=== PATIENT | female | born 1955 | race Caucasian/White ===

== ENCOUNTER 2017-11-27 09:26 | Day surgery (SDC) | payer OTHER ==
[2017-11-26 17:57] VITALS: BMI 23.9
[2017-11-27 10:24] VITALS: TEMP 98.9
[2017-11-27 10:28] LABS: INR 1.08 (0.82-1.09); PROTHROMBIN TIME (PATIENT) 12.2 SEC (9.7-13.0)
[2017-11-27 11:38] LABS: BASO % 0.8 % (0-2.0); EOS % 1.3 % (0-4.5); HEMOGLOBIN 11.2 GM/dL (10.7-15.3); LYMPH % 22.4 % (8-40); MCH 21.4 pg (25.7-33.7); MCHC 30.3 g/dl (32.0-36.0); MEAN CELL VOLUME 70.7 fl (80-96); MEAN PLT VOLUME 9.6 fl (7.5-11.1); MONO % 10.4 % (3.8-10.2); NEUT % 65.1 % (42.8-82.8); PLATELET COUNT 160 K/MM3 (134-434); RBC 5.23 M/mm3 (3.60-5.2); RDW 18.1 % (11.6-15.6); WHITE BLOOD COUNT 5.6 K/mm3 (4.0-10.0)
[2017-11-27 17:04] VITALS: PULSE 80
[2017-11-27 17:33] VITALS: BP 115/67
--- NOTE | 2017-11-28 13:38 | PATH ---
Surgical Pathology Report Patient Name: EFREN PHILIP [facility]. Rec. #: [id number] /Age/Gender: 1955 (Age: 62) / F Account: [id number] Location: RADIOLOGY Taken: 11/27/2017 Received: 11/27/2017 Reported: 11/28/2017 Physicians: Hudson Hernández M.D. Specimen(s) Received LUNG BIOPSY Clinical History 62-year-old female with COPD and right lung cancer status post radiation therapy with excellent response now with new lesion adjacent to old lesion Final Diagnosis RIGHT LUNG BIOPSY: INVASIVE SQUAMOUS CELL CARCINOMA, MODERATELY DIFFERENTIATED. Comment: Interdepartmental case reviewed with consensus on diagnosis. Electronically Signed Chantal Concepcion M.D. Gross Description Received in formalin labeled "right lung biopsy," is a 0.3 x 0.3 x 0.1 cm aggregate of gardner soft tissue fragments. The formalin is filtered and the specimen is entirely submitted in one cassette. /11/27/2017 saudi11/27/2017
== END 2017-11-27 17:48 | disposition home or self-care (01) ==
LOC: JRADIR 09:26
PROVIDERS: ATTEND Radiology Radiation Oncology
PROC: 0BBK3ZX Excision of Right Lung, Percutaneous Approach, Diagnostic (ICD-10-PCS; principal; 2017-11-27)
DX: C34.91 Malignant neoplasm of unspecified part of right bronchus or lung (principal)
CPT/HCPCS: 32405; 36415; 71045-TC-FY; 77012-TC; 85025; 85610; 88305-TC

== ENCOUNTER 2018-12-19 20:00 | Inpatient (IN) | payer OTHER ==
[2018-12-19 20:28] VITALS: BMI 21.4
--- NOTE | 2018-12-19 21:03 | PDOC ---
History of Present Illness - General Chief Complaint: Respiratory Stated Complaint: COUGH Time Seen by Provider: 12/19/18 21:03 History Source: Patient - History of Present Illness Initial Comments: 12/19/18 21:51 PCP: Dr. Jordan Ruggiero. Patient is a 63 year old female presented to the ED from [facility] presented to the ED with the chief complaint of worsening Shortness of breath at rest and dry cough. CXR was done at [facility] shows Right upper lung PNA, so sent here for further evaluation. Patient was admitted at [facility] on December 06, 2018 with Shortness of breath, was found to have respiratory failure and was intubated in the ED at [facility] after failed bipap trial. She was discharged to [facility] for short term rehab with instructions to use Bipap PRN. Patient reports that upon returning to the [place], she was feeling better. But few days ago, her room mate at the [place] left the window opened all night and she caught cold as per the patient. Since then has worsening hacking cough, fever 100 F and shortness of breath. Denies chest pain, palpitation, abdominal pain, nausea or vomiting. Bowel/Bladde habit normal. Sleep/Appetite decreased. As per the chart, ECHO done in 11/24 shows EF 50 %, RV enlargement. Past Medical hx: HTN, HLD, DM, CAD, COPD on home oxygen 2-3 L with Bipap PRN, Right lung CA s/p radiation a year ago, active smoker. Allergies: Nifedipine, Shell fish (rash) Medications: Telmisartan 40 mg, Amlodipine 10 mg, HCTZ 12.5 mg, Aspirin 81 mg, Plavix 75 mg, Basiglar, Metformin 500 mg BID, Advair BID, albuterol, gabapentin 300 mg, Mylanta. Past Surgical hx: None Social hx: lives at home. At [facility] for short term rehab Smoking: Smokes 5-6 cigs/day, hasn't smoked since 3 weeks. 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 - Travel Traveled outside of the country in the last 30 days: No Close contact w/someone who was outside of country & ill: No - Past Medical History Allergies/Adverse Reactions: Allergies Allergy/AdvReac Type Severity Reaction Status Date / Time nifedipine [From Procardia] Allergy Intermediate RED SKIN Verified 11/26/17 17: 37 Home Medications: Ambulatory Orders Albuterol 0.083% Nebulizer Miladis [Ventolin 0.083%] 1 neb NEB Q4H 09/03/17 Albuterol Sulfate Inhaler - [Ventolin Hfa Inhaler -] 1 - 2 inh PO QID 09/03/17 Amlodipine Besylate [Norvasc -] 10 mg PO DAILY 09/03/17 Aspirin 81 mg PO DAILY 09/03/17 Clopidogrel Bisulfate [Plavix] 75 mg PO DAILY 09/03/17 Gabapentin 300 mg PO TID 09/03/17 Hydrochlorothiazide 12.5 mg PO DAILY 09/03/17 Insulin Glargine,Hum.rec.anlog [Lantus] 100 unit SQ ASDIR 09/03/17 Nitroglycerin 0.4 mg SL PRN PRN 09/03/17 Olmesartan Medoxomil [Benicar] 20 mg PO DAILY 09/03/17 Salmeterol/Fluticasone [Advair 100Mcg/50Mcg -] 1 inh IH DAILY 09/03/17 Tiotropium Gilbert [Spiriva] 1 inh IH DAILY 09/03/17 metFORMIN HCL [Metformin HCl] 500 mg PO BID 09/03/17 Methadone [Dolophine -] 60 mg PO DAILY 11/27/17 Anemia: Yes Asthma: Yes Cancer: Yes (bone cancer) Cardiac Disorders: Yes (?STENT) CVA: No COPD: Yes CHF: No Dementia: No Diabetes: Yes (IDDM) GI Disorders: No Disorders: No HTN: Yes Hypercholesterolemia: Yes Liver Disease: No Seizures: No Thyroid Disease: No - Surgical History Abdominal Surgery: No Appendectomy: No Cardiac Surgery: Yes (ANGIOPLASTY ? STENT) Cholecystectomy: No Lung Surgery: Yes (LUNG BIOPSY) Neurologic Surgery: No Orthopedic Surgery: No - Suicide/Smoking/Psychosocial Hx Smoking History: Former smoker Have you smoked in the past 12 months: Yes Number of Cigarettes Smoked Daily: 2 Information on smoking cessation initiated: Yes 'Breaking Loose' booklet given: 09/03/17 Hx Alcohol Use: No Drug/Substance Use Hx: No (1 month ago) Substance Use Type: Heroin Hx Substance Use Treatment: Yes Review of Systems - Review of Systems Able to Perform ROS?: Yes Is the patient limited Swedish proficient: No *Physical Exam - Vital Signs Last Vital Signs Temp Pulse Resp BP Pulse Ox 98.5 F 101 H 22 H 121/69 98 12/19/18 20:05 12/19/18 20:05 12/19/18 20:05 12/19/18 20:05 12/19/18 20:05 - Physical Exam Comments: 12/19/18 22:23 General: Patient is sitting in bed, wheezing, short of breath, awake, alert, oriented x 3, can speak full sentence, in mild respiratory distress. HEENT: EOM intact, pallor +, no icterus. Chest: Tachypenic, B/L lungs coarse breath sounds, wheezing + CVS: Tachycardic, regular rate and rhythm, S1, S2 no murmur Abdomen: Soft, non tender, no organomegaly, BS + Ext: No peripheral edema Neuro: No facial droop, groosly normal. ED Treatment Course - LABORATORY CBC & Chemistry Diagram: 12/19/18 21:50 12/19/18 21:50 Medical Decision Making - Medical Decision Making 12/19/18 22:25 Patient is a 63 year old female from [facility] with significant past medical history of HTN, HLD, DM, CAD, Right lung cancer, recently intubated 12/06/2018 at [facility] for respiratory distress presented with worsening shortness of breath, cough, fever, found to have pneumonia in CXR. Will send for septic work up: CBC ,CMP, Blood cultures. Also UA, urine for tox, trops IV NS 500 mls, Pt has dry mucus membrane and looks dilma Duoneb Solumedrol 125 mg, Zosyn and Vancomycin 1000 mg. CXR. Influenza, RSV sent 12/19/18 22:41 CBC: No leukocytosis, Microcytic anemia H/H 03/0612/19/18 22:42 Hospitalist admits for [facility]a [employer]. 12/19/18 23:20 Accepted by [facility] for admission in Med/Surg *DC/Admit/Observation/Transfer Diagnosis at time of Disposition: Hospital-acquired pneumonia - Referrals Referrals: Jordan Ruggiero MD [Primary Care Provider] - - Patient Instructions - Post Discharge Activity
[2018-12-19] MEDS ORDERED: ALBUTEROL SO4 2.5/IPRATROPIUM 0.5 INH SOL 3 ML VIAL.NEB. NEB ONE ×5 (21:25→23:14)
[2018-12-19] MEDS ORDERED: methylPREDNISolone NA SUCC 125 MG/2 ML VIAL IVPB ONE (21:38)
[2018-12-19] MEDS ORDERED: SODIUM CHLORIDE 0.9% 1000 ML INFUS.BAG IV ONE ×2 (21:38→23:59)
[2018-12-19] MEDS ORDERED: PIPERACILLIN/TAZOB 4.5 GM 4.5 GM in DEXTROSE 5%-WATER 100 ML IVPB ONE (21:40)
[2018-12-19] MEDS ORDERED: VANCOMYCIN 1 GM in D5W (PRE-DOCKED) 1,000 MG/250 ML IVPB ONE (21:40)
[2018-12-19 22:19] LABS: INR 1.13 (0.83-1.09); PROTHROMBIN TIME (PATIENT) 13.3 SEC (9.7-13.0)
[2018-12-19 22:20] LABS: HEMATOCRIT 29.8 % (32.4-45.2); HEMOGLOBIN 8.9 GM/dL (10.7-15.3); MCH 21.2 pg (25.7-33.7); MEAN CELL VOLUME 70.8 fl (80-96); MEAN PLT VOLUME 9.1 fl (7.5-11.1); PLATELET COUNT 173 K/MM3 (134-434); RBC 4.21 M/mm3 (3.60-5.2); RDW 20.8 % (11.6-15.6); URINE APPEARANCE CLEAR; URINE BILIRUBIN NEGATIVE (NEGATIVE); URINE COLOR YELLOW; URINE GLUCOSE (UA) 3+ (NEGATIVE); URINE KETONE NEGATIVE (NEGATIVE); URINE LEUK ESTERASE NEGATIVE (NEGATIVE); URINE NITRITE NEGATIVE (NEGATIVE); URINE PROTEIN NEGATIVE (NEGATIVE); WHITE BLOOD COUNT 5.7 K/mm3 (4.0-10.0)
[2018-12-19] MEDS ORDERED: VANCOMYCIN 1 GRAM (PRE-DOCKED) 1,000 MG/250 ML BAG IVPB ONE (22:22)
[2018-12-19] MEDS ORDERED: PIPERACILLIN/TAZOB 4.5 GM 4.5 GM/100 ML BAG IVPB ONE (22:22)
[2018-12-19] MEDS ORDERED: methylPREDNISolone NA SUCC 125 MG/2 ML VIAL ONE (22:23)
--- NOTE | 2018-12-19 22:27 | PDOC ---
Documentation entered by Alice Jaimes SCRIBE, acting as scribe for Peg Gibson DO. Peg Gibson DO: This documentation has been prepared by the Theodore contreras Mackenzie, SCRIBE, under my direction and personally reviewed by me in its entirety. I confirm that the documentation accurately reflects all work , treatment, procedures, and medical decision making performed by me. Attending Attestation - Resident Resident Name: Glenny Garcia - ED Attending Attestation I have performed the following: I have examined & evaluated the patient, The case was reviewed & discussed with the resident, I agree w/resident's findings & plan, Exceptions are as noted - HPI HPI: The patient is a 63 year old female, with a significant PMH of COPD, CAD, DM, HTN, and HLD who presents to the emergency department from [facility] for evaluation of an abnormal chest X-ray and progressively worsening shortness of breath. Patient states shortness of breath started a few days ago and was accompanied by a dry cough and 100 degree fever. The patient denies chest pain, headache and dizziness. Denies, chills, nausea, vomit, diarrhea and constipation. Denies dysuria, frequency, urgency and hematuria. Allergies: Nifedipine Social history: Reported tobacco use. 12/19/18 22:35 - Physicial Exam PE: GENERAL: Awake, alert, and fully oriented, in no acute distress HEAD: No signs of trauma EYES: PERRLA, EOMI, sclera anicteric, conjunctiva clear ENT: (+)Dry mucosa. Auricles normal inspection, hearing grossly normal, nares patent, oropharynx clear without exudates. NECK: Normal ROM, supple, no lymphadenopathy, JVD, or masses LUNGS:(+) Tachypneic. (+)Diffuse wheezing bilaterally. (+)Right coarse breath sounds diminished at right base. No crackles HEART: Regular rate and rhythm, normal S1 and S2, no murmurs, rubs or gallops ABDOMEN: Soft, nontender, normoactive bowel sounds. No guarding, no rebound. No masses EXTREMITIES: Normal range of motion, no edema. No clubbing or cyanosis. No cords, erythema, or tenderness NEUROLOGICAL: Cranial nerves II through XII grossly intact. Normal speech, normal gait SKIN: Warm, Dry, normal turgor, no rashes or lesions noted. 12/19/18 22:35 - Medical Decision Making 12/19/18 22:23 I, Dr. Peg Gibson, DO, attest that this document has been prepared under my direction and personally reviewed by me in its entirety. I further attest, that it accurately reflects all work, treatment, procedures and medical decision -making performed by me. 12/19/18 22:23 a/p: 63yo female from [facility] for eval of dry cough, sob, and fevers -pt arrives afebrile -pt with recent hospitalization at [facility] 2 weeks ago -hx of lung ca s/p radiation therapy -pt with dry cough -outpt xray shows RUL pna -will send labs, ekg, cxr -will start abx for hcap -will give nebs and steroids for wheezing/sob -will give ivf hydration as pt has dry mm 12/19/18 23:40 no elevated wbc case discussed with BUD who accepts pt to service for hcap abx and blood cultures ordered/drawn 12/19/18 23:44 cxr reviewed will obtain ct chest for further eval for poss pna Heart Score/ECG Review - ECG Intrepretation Comment:: 12/19/18 22:38 sinus at 94, nl axis, nl interval, no acute st/t wave findings
[2018-12-19 22:32] LABS: ALBUMIN 2.8 g/dl (3.4-5.0); BILIRUBIN,TOTAL 0.2 mg/dL (0.2-1); BLOOD UREA NITROGEN 13.5 mg/dL (7-18); CALCIUM 8.8 mg/dL (8.5-10.1); CREATININE 0.4 mg/dL (0.55-1.3); POTASSIUM 5.1 mmol/L (3.5-5.1); TOT PROT 6.3 g/dl (6.4-8.2)
[2018-12-19 23:12] LABS: COCAINE, UR NEGATIVE ng/ml (CUTOFF=300); OPIATES, URI NEGATIVE ng/ml (CUTOFF=300); PHENCYCLIDINE,URINE NEGATIVE ng/ml (CUTOFF=25); URINE AMPHETAMINES NEGATIVE ng/ml (CUTOFF=500); URINE BARBITURATES NEGATIVE ng/ml (CUTOFF=200); URINE BENZODIAZEPINES NEGATIVE ng/ml (CUTOFF=200)
--- NOTE | 2018-12-19 23:22 | HP ---
Admitting History and Physical - Admission Chief Complaint: SOB and cough x2 days History of Present Illness: PCP: Dr. Jordan Ruggiero. Pt is a 63 yo F with PMHx of HTN, HLD, DM, CAD, COPD on home oxygen 2-3 L, Right lung CA s/p radiation a year ago, active smoker, presenting to the ED from [facility] for worsening Shortness of breath at rest and dry cough for 2 days. Pt denies fevers, sputum production and sick contacts. She however shared a room with a roommate who she reports left the window open thus precipitating her symptoms. No chest pain, no hemoptysis. Patient was recently admitted at [facility] 11/2018 for acute hypoxic/capercabnic respiratory failure with intubation x1 day following failed bipap trial. Pt was discharged to [facility] for short term rehab with instructions to use Bipap PRN, following initial improvement of her symptoms. Today, CXR was done at [facility] and reported as Right upper lung PNA, so sent here for further evaluation. Per [facility] records, ECHO done in 11/24 shows EF 50 %, RV enlargement. Medication stopped at [facility]: flulaval, metformin, amlodipine, plavix , micardis, incruse ellipta. Medications changed were: Calcium-Vit D [id number] bid, insulin basaglar changed from 20u to 26u HS, MEDS CONTD: mG oh, ngt-0.4MG SL Q5MINS prn, VENTOLIN 90MCG/INH, gabapentin 300MG TID, omeprazoe 20MG DAILY, asa 81 New meds added were; ipratropium/albuterol-0.5-2.5, Naphazoline-pheniramine- 0.025%-0.3% ophthalmic solution, [id number], nicotine patch, methadone-30mg , Insulin Sliding scale-1, 2, 4, 6, 8 (180-200, 201-250, 251-300 , 301-350, 351-400) In ED: pt received solumed, duonebs, vanc/zosyn CXR- patchy infiltrates WBC-5.7, mcv-70.8, HCO3-33 Allergies: Nifedipine, Shell fish (rash) Past Surgical hx: None Social hx: lives at home with son. At [facility] for short term rehab Smoking: Smokes 5-6 cigs/day, hasn't smoked since 3 weeks. 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 History Source: Patient, Medical Record - Smoking History Smoking history: Former smoker Have you smoked in the past 12 months: Yes Aproximately how many cigarettes per day: 2 - Alcohol/Substance Use Hx Alcohol Use: No Home Medications - Allergies Allergies/Adverse Reactions: Allergies Allergy/AdvReac Type Severity Reaction Status Date / Time nifedipine [From Procardia] Allergy Intermediate RED SKIN Verified 12/19/18 23: 29 - Home Medications Home Medications: Ambulatory Orders Albuterol Sulfate Inhaler - [Ventolin Hfa Inhaler -] 1 - 2 inh PO QID 09/03/17 Aspirin 81 mg PO DAILY 09/03/17 Gabapentin 300 mg PO TID 09/03/17 Nitroglycerin 0.4 mg SL PRN PRN 09/03/17 Acetaminophen [Tylenol Extra Strength] 500 mg PO PRN 12/19/18 Calcium Carbonate/Vitamin D3 [Calcium 500-Vit D3 200 Tablet] 1 each PO DAILY Insulin Glargine,Hum.rec.anlog [Basaglar Kwikpen U-100] 26 unit SQ DAILY Nicotine [Nicotine Patch] 1 each TD DAILY 12/19/18 Omeprazole 20 mg PO DAILY 12/19/18 Guaifenesin/Dextromethorphan [Guaifenesin Dm Syrup] 5 ml PO Q6H PRN 12/20/18 Insulin Lispro See Protocol SQ AC 12/20/18 Ipratropium/Albuterol Sulfate [Iprat-Albut 0.5-3(2.5) mg/3 ml] 3 ml IN Q6H 12/20 Magnesium Hydroxide [Milk of Magnesia -] 15 ml PO DAILY PRN 12/20/18 Methadone [Dolophine -] 30 mg PO DAILY 12/20/18 Naphazoline HCl/Pheniramine [Allergy Eye Drops] 15 ml OP TID 12/20/18 Review of Systems - Review of Systems Constitutional: denies: Chills, Fever HENT: denies: Difficult Swallowing, Nasal Congestion, Throat Pain Neck: denies: Stiffness Cardiovascular: reports: Shortness of Breath. denies: Chest Pain, Edema, Palpitations Respiratory: reports: Cough, SOB Gastrointestinal: denies: Abdominal Pain, Constipation Genitourinary: denies: Burning Neurological: denies: Change in LOC, Change in Speech, Confusion, Dizziness Hematology/Lymphatic: reports: No Symptoms Physical Examination Vital Signs: Vital Signs Temperature 98.5 F 12/19/18 20:05 Pulse Rate 101 H 12/19/18 20:20 Respiratory Rate 22 H 12/19/18 20:05 Blood Pressure 121/69 12/19/18 20:05 O2 Sat by Pulse Oximetry (%) 100 12/19/18 20:20 Constitutional: Yes: No Distress Eyes: Yes: Conjunctiva Clear, EOM Intact, PERRL HENT: Yes: Atraumatic, Other (Nasal cannular) Neck: Yes: Supple Cardiovascular: Yes: Regular Rate and Rhythm, S1, S2 Respiratory: Yes: Poor Air Entry, Rales Gastrointestinal: Yes: Normal Bowel Sounds, Soft Renal/: No: CVA Tenderness - Left, CVA Tenderness - Right Peripheral Pulses WNL: Yes Neurological: Yes: Alert, Oriented, Cran Nerves II-XII Intact. No: Confusion, Facial Droop, Lethargy ...Motor Strength: WNL Psychiatric: Yes: Alert, Oriented Labs: CBC, BMP 12/19/18 21:50 12/19/18 21:50 Assessment/Plan Ambulatory Orders Albuterol Sulfate Inhaler - [Ventolin Hfa Inhaler -] 1 - 2 inh PO QID 09/03/17 Aspirin 81 mg PO DAILY 09/03/17 Gabapentin 300 mg PO TID 09/03/17 Nitroglycerin 0.4 mg SL PRN PRN 09/03/17 Acetaminophen [Tylenol Extra Strength] 500 mg PO PRN 12/19/18 Calcium Carbonate/Vitamin D3 [Calcium 500-Vit D3 200 Tablet] 1 each PO DAILY Insulin Glargine,Hum.rec.anlog [Basaglar Kwikpen U-100] 26 unit SQ DAILY Nicotine [Nicotine Patch] 1 each TD DAILY 12/19/18 Omeprazole 20 mg PO DAILY 12/19/18 Guaifenesin/Dextromethorphan [Guaifenesin Dm Syrup] 5 ml PO Q6H PRN 12/20/18 Insulin Lispro See Protocol SQ AC 12/20/18 Ipratropium/Albuterol Sulfate [Iprat-Albut 0.5-3(2.5) mg/3 ml] 3 ml IN Q6H 12/20 Magnesium Hydroxide [Milk of Magnesia -] 15 ml PO DAILY PRN 12/20/18 Methadone [Dolophine -] 30 mg PO DAILY 12/20/18 Naphazoline HCl/Pheniramine [Allergy Eye Drops] 15 ml OP TID 12/20/18 Current Medications Albuterol Sulfate (Ventolin 0.083% Nebulizer Soln -) 1 amp NEB Q4H PRN PRN Reason: SHORT OF BREATH/WHEEZING Albuterol Sulfate (Ventolin 0.083% Nebulizer Soln -) 1 amp NEB RQID [facility] Albuterol Sulfate (Ventolin Hfa Inhaler -) puff IH QID [facility] Aspirin (Asa -) 81 mg PO DAILY [facility] Calcium Carbonate/Cholecalciferol (Os-Sj 500+D -) 1 tab PO DAILY [facility] Enoxaparin Sodium (Lovenox -) 40 mg SQ DAILY [facility] Gabapentin (Neurontin -) 300 mg PO TID [facility] Piperacillin Sod/Tazobactam (Sod 3.375 gm/ Dextrose) 50 mls @ 100 mls/hr IVPB Q8H-IV [facility]; Protocol Piperacillin Sod/Tazobactam (Sod 3.375 gm/ Dextrose) 50 mls @ 100 mls/hr IVPB Q8H-IV [facility]; Protocol Stop: 12/20/18 18:29 Insulin Aspart (Novolog Vial Sliding Scale -) 1 vial SQ ACHS [facility]; Protocol Insulin Detemir (Levemir Vial) 26 units SQ HS [facility] Methadone HCl (Dolophine -) 30 mg PO DAILY [facility] Stop: 12/21/18 09:59 Methylprednisolone Sodium Succinate (Solu-Medrol -) 60 mg IVPUSH Q6H-IV [facility] Last Admin: 12/20/18 03:34 Dose: 60 mg Naphazoline HCl/Pheniramine Maleate (Visine-A -) 224.8876 drop OU TID [facility] Nicotine (Nicoderm Patch -) 14 mg TD DAILY [facility] Nitroglycerin (Nitrostat -) 0.4 mg SL PRN PRN PRN Reason: FOR CHEST PAIN Non-Formulary Medication (Guaifenesin/Dextromethorphan) 5 ml PO Q6H PRN PRN Reason: COUGH Non-Formulary Medication (Magnesium Hydroxide) 15 ml PO DAILY PRN PRN Reason: INDIGESTION Non-Formulary Medication (Omeprazole) 20 mg PO DAILY [facility] Vancomycin HCl (Vancomycin (Pre-Docked)) 1,000 mg IVPB DAILY@2200 [facility]; Protocol Assessment/Plan: Pt is a 63 yo F with PMHx of HTN, HLD, DM, CAD, COPD on home oxygen 2-3 L, Right lung CA s/p radiation a year ago, active smoker, presenting to the ED from [facility] for worsening Shortness of breath at rest and dry cough for 2 days. SOB: Likely secondary to COPD exacerbation, received 125 solumed, Cont 60mg Q6H , duonebs, ventolin IH, Likely chronic retainer, HCO3 elevated, pending BNP COPD on home oxygen 2-3 L: Pre and post , Bipap at night and when she desats PRN , cannot find settings will put at 14/4 HAP: Pt recently intubated 11/2018 and treated for PNA in [facility]- Cont Vanc/ zosyn/add levaquin for atypicals, ID-Dr Montejo Would be helpful to get the [facility] Chest images to compare with current CXR, if daytime is able to retrieve documents. Prolonged QTC: repeat EKG in am DM-With hyperglycemia, resume long acting 26U HS, one time dose given, ISS Q2h overnight, ACHS in day time Neuropathy: Cont gabapentin HTN:Arb stopped in [facility], cotn to monitor HLD: No statins documented CAD: Unclear hx, appears she got cath without stents in past. Plavix held by [facility], cont ASA Right lung CA s/p radiation a year ago, Hemonc follow up- Dr Fuchs, increases pt risk for obstructive PNA active smoker: Nicotine patch Lovenox sq Protonix Diabetic diet, no standing fluids Visit type - Emergency Visit Emergency Visit: Yes ED Registration Date: 12/19/18 Care time: The patient presented to the Emergency Department on the above date and was hospitalized for further evaluation of their emergent condition. - New Patient This patient is new to me today: Yes Date on this admission: 12/19/18 - Critical Care Critical Care patient: No
[2018-12-19 23:59] LABS: METHADONE, UR POSITIVE ng/ml (CUTOFF=300)
[2018-12-20] MEDS ORDERED: ALBUTEROL SO4 0.083% IH SOL 2.5 MG/3 ML VIAL.NEB. NEB PRN (02:45)
--- NOTE | 2018-12-20 03:11 | PN ---
Teaching Attending Note Name of Resident: Angela Abernathy ATTENDING PHYSICIAN STATEMENT I saw and evaluated the patient. I reviewed the resident's note and discussed the case with the resident. I agree with the resident's findings and plan as documented. SUBJECTIVE: Seen and examined; please refer to resident note for further historical information. Patient is a 63 y/o female presenting to the medicine service for SOB from her SNF (was at [facility] for short term rehab, patient of Dr. Antoine Ruggiero). She was recently discharged to [facility] from [facility] on 12/11/18. She has a history of lung cancer, COPD on 2L O2 ATC, HTN, DM, CAD. She is documented in DC summary as being a poor historian and this is reflected. She had worsening SOB x1 day today and was found on CXR at her facility to have patchy RUL infiltrate. She was recently intubated at OSH. She was given nebs, steroids in the ER which did improve her sx and she is now saturating well on 3L NC without any respiratory distress. CT chest was obtained in the ER which shows multiple b/l lung nodules, largest 7mm in RUL and 8mm LLL. This is accompanied by interstitial thickening and centrilobular nodules in the RLL which possibly represents atypical infection. No fever or leukocytosis noted. Does have a cough and SOB on exertion. Dr. Fuchs is her oncologist per documentation. The DC summary states that she is medically stable with PRN daytime and qHS nocturnal bipap; it is unknown if she was tried on BiPap today prior to presenting. 10 sys ROS done and negative aside from HPI PMH, PSH, FH, SH reviewed Home Medications UPDATING FROM PR RECORDS/DC SUMMARY OBJECTIVE: VS, labs, imaging reviewed NAD, AAO, resting in bed on 3L NC NC AT EOMI PERRLA NT ND +BS Lungs with scattered wheezes, w/ sym exp CN2-12 wnl, no fnd Normal mood, appropriate behavior. EKG reviewed CT chest reviewed; prelim report discussed in HPI and final report pending Outside CXR report reviewed and discussed above Echo from OSH documents 50% LVEF with RV enlargement ASSESSMENT AND PLAN: Patient presents with SOB and hypoxia (improved) 9 days after being DCd from ICU stay requiring intubation; likely COPD exacerbation with potential PNA vs. residual changes from prior infection. 1) SOB/Hypoxia -Improved; likely COPD with ?PNA (was just admitted and intubated; want to compare old images to ensure this wasn't in area of prior distibution of changes in the absence of WBC, fever) -Covering for COPD exacerbation and HAP; discussed seperately -PRN O2 (try to wean back to home requirement of 2L), incentive spirometry. Consider pulmonary consultation. -qHS BiPap with PRN daytime support as recommended in prior DCS. 2) COPD Exacerbation -Positive as SOB with exert with change in cough -60 q6h steroids, ATC nebs with PRN available, IV levaquin (QTC <460); consider pulmonary consultation -NRT while inpatient; she smoked 1/4 PPD up until her admission at OSH -PRN Bipap recommended in prior DCS 3) HAP -Based on imaging will cover empirically and add additional atypical coverage with levaquin -Sputum/blood cx, urine antigen L and P, incentive spirometry. Monitor for fever or white count. -ID consultation given abx choices; appreciate expert opinion 4) Hx Lung CA -Consult her oncologist to get the full treatment history as she is not aware and the documents sent over do not detail this; she has had radiation so consider radiation pneumonitis, etc. but I need to have a much better idea on what exact treatments she got and the timeframe. 5) Hx CAD -Documented on her last admission at [facility] she had her plavix stopped along with other medication changes. Will verify list with NH and continue appropriate home medications. 6) Chronic Pain -Continue methadone 7) Microcytic Anemia -Trend CBC; check iron studies. Full Code
[2018-12-20] MEDS ORDERED: INSULIN (NOVOLOG) ASPART 100 UNITS/ML 10ML VIAL SQ ONE (03:30)
[2018-12-20] MEDS: methylPREDNISolone NA SUCC 40 MG/1 ML VIAL IVPUSH SCH ×3 (03:34→22:03)
[2018-12-20] MEDS ORDERED: INSULIN (LEVEMIR) 100 UNITS/ML UNITS SQ ONE (03:48)
[2018-12-20] MEDS ORDERED: guaiFENesin/D-METHORPHAN HB 10 ML UNIT-DOSE CUPS PO PRN (03:57)
[2018-12-20] MEDS ORDERED: MAGNESIUM HYDROX 2400MG/30ML ORAL SUSPENSION 30 ML CUP PO PRN (03:57)
[2018-12-20] MEDS ORDERED: NITROGLYCERIN SUBLINGUAL 1/150 0.4 MG TAB SL PRN (03:57)
[2018-12-20] MEDS: GABAPENTIN 300 MG CAPSULE (FP) PO SCH ×3 (05:44→22:04)
[2018-12-20] MEDS: NAPHAZOLINE/PHENIRAMINE OPHTHALMIC 15 ML BOTTLE OU SCH ×3 (06:12→22:08)
[2018-12-20] MEDS: INSULIN SLIDING SCALE (NOVOLOG) 1 VIAL SQ SCH ×4 (06:13→22:05)
[2018-12-20 07:48] LABS: INR 1.07 (0.83-1.09); PROTHROMBIN TIME (PATIENT) 12.6 SEC (9.7-13.0)
[2018-12-20 07:50] LABS: ACTIVATED PTT 27.9 SECONDS (25.2-36.5)
[2018-12-20] MEDS: ALBUTEROL SO4 0.083% IH SOL 2.5 MG/3 ML VIAL.NEB. NEB SCH ×4 (07:56→20:45)
[2018-12-20 08:06] LABS: ALBUMIN 2.6 g/dl (3.4-5.0); BILIRUBIN,TOTAL 0.2 mg/dL (0.2-1); BLOOD UREA NITROGEN 10.4 mg/dL (7-18); CREATININE 0.4 mg/dL (0.55-1.3); MAGNESIUM 1.8 mg/dL (1.8-2.4); PHOSPHOROUS 2.3 mg/dL (2.5-4.9); POTASSIUM 4.1 mmol/L (3.5-5.1); TOT PROT 6.1 g/dl (6.4-8.2)
[2018-12-20 08:26] LABS: BASO % 0.2 % (0-2.0); HEMATOCRIT 29.4 % (32.4-45.2); HEMOGLOBIN 8.9 GM/dL (10.7-15.3); LYMPH % 7.1 % (8-40); MCHC 30.3 g/dl (32.0-36.0); MEAN CELL VOLUME 69.2 fl (80-96); MEAN PLT VOLUME 8.9 fl (7.5-11.1); MONO % 1.6 % (3.8-10.2); NEUT % 91.1 % (42.8-82.8); PLATELET COUNT 177 K/MM3 (134-434); RBC 4.25 M/mm3 (3.60-5.2); RDW 20.7 % (11.6-15.6)
[2018-12-20] MEDS ORDERED: VANCOMYCIN 1 GM in D5W (PRE-DOCKED) 1,000 MG/250 ML IVPB SCH ×2 (10:00→22:00)
[2018-12-20] MEDS ORDERED: ALBUTEROL SO4 8 GM HFA INHALER IH SCH (10:00)
[2018-12-20] MEDS ORDERED: PIPERACILLIN/TAZOB 3.375 GM 3.375 GM in DEXTROSE 5%-WATER - 50 ML IVPB SCH (10:00)
[2018-12-20] MEDS ORDERED: METHADONE HCL 10 MG TABLET PO ONE (10:00)
--- NOTE | 2018-12-20 10:24 | CONSULT ---
Consultation: REQUESTING PROVIDER: Dr Abernathy CONSULT REQUEST: We have been asked to medically evaluate this patient for lung cancer. HISTORY OF PRESENT ILLNESS: The patient is a 63 yo F with PMHx of HTN, HLD, DM, CAD, COPD on home oxygen 2- 3 L, right lung Ca s/p stereotactic radiotherapy x 2, stable PET scan, active smoker, presenting to the ED from [facility] for SOB, hypoxia, found to have possible infiltrate. The patient was admitted recently to [facility] for acute respiratory failure and intubated. She was discharged to [facility] and states that her roommate opened a window few days ago and she started having fever and chills. She is admitted for COPD exacerbation/PNA. Hematology/Oncology was consulted for lung cancer. Today she is feeling better, denies SOB, chest pain, fever, chills. She reports 3-4 lbs weight loss after recent hospitalization. [place] patient is complaining of chronic cough and tingling in her hands and feet. She denies dysuria, nausea, vomiting, diarrhea, night sweats. She denies headaches, weakness, dizziness, chest pain, SOB. Of note the patient is not known to Dr Gilmore. 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 Smoking: Smokes 1 cig/day since the age 18, smoked more than that before. Alcohol: Denies. 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 FH: mother: during surgery, father unknown cancer, brother cancer, sister cancer, daughter CVA x 2. REVIEW OF SYSTEMS: CONSTITUTIONAL: Absent: fever, chills, diaphoresis, generalized weakness, loss of appetite, weight change HEENT: Absent: rhinorrhea, nasal congestion, difficulty swallowing, mouth swelling, visual changes CARDIOVASCULAR: Absent: chest pain, syncope, palpitations, irregular heart rate, lightheadedness , peripheral edema RESPIRATORY: cough, shortness of breath Absent: orthopnea, wheezing GASTROINTESTINAL: Absent: abdominal pain, abdominal distension, nausea, vomiting, diarrhea, constipation, GENITOURINARY: Absent: dysuria, frequency, urgency, hesitancy, hematuria, flank pain MUSCULOSKELETAL: Absent: myalgia, arthralgia, joint swelling, back pain, SKIN: Absent: rash, itching, pallor HEMATOLOGIC/IMMUNOLOGIC: Absent: easy bleeding, easy bruising, lymphadenopathy, ENDOCRINE: Absent: unexplained weight gain, unexplained weight loss, NEUROLOGIC: unsteady gait Absent: headache, focal weakness or paresthesias, dizziness PSYCHIATRIC: Absent: anxiety, depression PHYSICAL EXAMINATION Vital Signs - 24 hr 12/19/18 12/19/18 12/20/18 20:05 20:20 01:05 Temperature 98.5 F 98.2 F Pulse Rate 101 H 101 H 99 H Respiratory 22 H 20 Rate Blood Pressure 121/69 115/66 O2 Sat by Pulse 98 100 Oximetry (%) 12/20/18 12/20/18 12/20/18 01:10 01:19 06:30 Temperature 98.2 F Pulse Rate 99 H 92 H Respiratory 20 Rate Blood Pressure 115/66 O2 Sat by Pulse 100 91 L Oximetry (%) 12/20/18 07:04 Temperature 97.7 F Pulse Rate 104 H Respiratory 20 Rate Blood Pressure 140/84 O2 Sat by Pulse Oximetry (%) GENERAL: Awake, alert, and fully oriented, in no acute distress. HEAD: Normal with no signs of trauma. EYES: Pupils equal, round and reactive to light, extraocular movements intact, sclera anicteric, conjunctiva clear. EARS, NOSE, THROAT: Ears normal, nares patent, oropharynx clear without exudates. Moist mucous membranes, missing teeth. NECK: Normal range of motion, supple without lymphadenopathy. LUNGS: Scattered rhales, crackles at bases, diminished breat sounds on right side. No wheezes, and no crackles. No accessory muscle use. HEART: Regular rate and rhythm, normal S1 and S2 without murmur, rub or gallop. ABDOMEN: Soft, nontender, not distended, normoactive bowel sounds, no guarding, no rebound, no masses. MUSCULOSKELETAL: Normal range of motion at all joints. No bony deformities or tenderness. UPPER EXTREMITIES: No peripheral edema. LOWER EXTREMITIES: 2+ pulses, warm. No peripheral edema. NEUROLOGICAL: No facial asymmetry, motor 5/5, sensation intact. Normal speech. Normal gait. PSYCHIATRIC: Cooperative. Good eye contact. Appropriate mood and affect. SKIN: Warm, dry, normal turgor, no rashes. BREAST: symmetric, no skin rash, no discharge, no masses. Laboratory Results - last 24 hr 12/19/18 12/19/18 12/19/18 21:50 21:50 21:50 WBC 5.7 RBC 4.21 Hgb 8.9 L Hct 29.8 L D MCV 70.8 L MCH 21.2 L MCHC 30.0 L RDW 20.8 H Plt Count 173 MPV 9.1 Absolute Neuts (auto) Neutrophils % Lymphocytes % Monocytes % Eosinophils % Basophils % Nucleated RBC % PT with INR 13.30 H INR 1.13 H PTT (Actin FS) Sodium 137 Potassium 5.1 Chloride 100 Carbon Dioxide 33 H Anion Gap 3 L BUN 13.5 Creatinine 0.4 L Est GFR (CKD-EPI)AfAm 128.47 Est GFR (CKD-EPI)NonAf 110.85 POC Glucometer Random Glucose 302 H* Calcium 8.8 Phosphorus Magnesium Ferritin Total Bilirubin 0.2 AST 18 ALT 19 Alkaline Phosphatase 83 Troponin I B-Natriuretic Peptide Total Protein 6.3 L Albumin 2.8 L Urine Color Urine Appearance Urine pH Ur Specific [place] Urine Protein Urine Glucose (UA) Urine Ketones Urine Blood Urine Nitrite Urine Bilirubin Urine Urobilinogen Ur Leukocyte Esterase Opiates Screen Methadone Screen Barbiturate Screen Phencyclidine Screen Ur Amphetamines Screen MDMA (Ecstasy) Screen Benzodiazepines Screen Cocaine Screen U Marijuana (THC) Screen Influenza A (Rapid) Influenza B (Rapid) RSV Rapid 12/19/18 12/19/18 12/19/18 21:50 21:50 21:50 WBC RBC Hgb Hct MCV MCH MCHC RDW Plt Count MPV Absolute Neuts (auto) Neutrophils % Lymphocytes % Monocytes % Eosinophils % Basophils % Nucleated RBC % PT with INR INR PTT (Actin FS) Sodium Potassium Chloride Carbon Dioxide Anion Gap BUN Creatinine Est GFR (CKD-EPI)AfAm Est GFR (CKD-EPI)NonAf POC Glucometer Random Glucose Calcium Phosphorus Magnesium Ferritin Total Bilirubin AST ALT Alkaline Phosphatase Troponin I < 0.02 B-Natriuretic Peptide Total Protein Albumin Urine Color Yellow Urine Appearance Clear Urine pH 6.0 Ur Specific [place] 1.040 H Urine Protein Negative Urine Glucose (UA) 3+ H Urine Ketones Negative Urine Blood Negative Urine Nitrite Negative Urine Bilirubin Negative Urine Urobilinogen 1.0 Ur Leukocyte Esterase Negative Opiates Screen Methadone Screen Barbiturate Screen Phencyclidine Screen Ur Amphetamines Screen MDMA (Ecstasy) Screen Benzodiazepines Screen Cocaine Screen U Marijuana (THC) Screen Influenza A (Rapid) Negative Influenza B (Rapid) Negative RSV Rapid 12/19/18 12/19/18 12/20/18 21:50 21:50 03:19 WBC RBC Hgb Hct MCV MCH MCHC RDW Plt Count MPV Absolute Neuts (auto) Neutrophils % Lymphocytes % Monocytes % Eosinophils % Basophils % Nucleated RBC % PT with INR INR PTT (Actin FS) Sodium Potassium Chloride Carbon Dioxide Anion Gap BUN Creatinine Est GFR (CKD-EPI)AfAm Est GFR (CKD-EPI)NonAf POC Glucometer 348 Random Glucose Calcium Phosphorus Magnesium Ferritin Total Bilirubin AST ALT Alkaline Phosphatase Troponin I B-Natriuretic Peptide Total Protein Albumin Urine Color Urine Appearance Urine pH Ur Specific [place] Urine Protein Urine Glucose (UA) Urine Ketones Urine Blood Urine Nitrite Urine Bilirubin Urine Urobilinogen Ur Leukocyte Esterase Opiates Screen Negative Methadone Screen Positive A* Barbiturate Screen Negative Phencyclidine Screen Negative Ur Amphetamines Screen Negative MDMA (Ecstasy) Screen Negative Benzodiazepines Screen Negative Cocaine Screen Negative U Marijuana (THC) Screen Negative Influenza A (Rapid) Influenza B (Rapid) RSV Rapid Negative 12/20/18 12/20/18 12/20/18 05:42 06:45 06:45 WBC 4.0 RBC 4.25 Hgb 8.9 L Hct 29.4 L MCV 69.2 L MCH 21.0 L MCHC 30.3 L RDW 20.7 H Plt Count 177 MPV 8.9 Absolute Neuts (auto) 3.6 Neutrophils % 91.1 H D Lymphocytes % 7.1 L D Monocytes % 1.6 L D Eosinophils % 0.0 D Basophils % 0.2 Nucleated RBC % 0 PT with INR INR PTT (Actin FS) Sodium Potassium Chloride Carbon Dioxide Anion Gap BUN Creatinine Est GFR (CKD-EPI)AfAm Est GFR (CKD-EPI)NonAf POC Glucometer 301 Random Glucose Calcium Phosphorus Magnesium Ferritin Total Bilirubin AST ALT Alkaline Phosphatase Troponin I B-Natriuretic Peptide 179.4 H Total Protein Albumin Urine Color Urine Appearance Urine pH Ur Specific [place] Urine Protein Urine Glucose (UA) Urine Ketones Urine Blood Urine Nitrite Urine Bilirubin Urine Urobilinogen Ur Leukocyte Esterase Opiates Screen Methadone Screen Barbiturate Screen Phencyclidine Screen Ur Amphetamines Screen MDMA (Ecstasy) Screen Benzodiazepines Screen Cocaine Screen U Marijuana (THC) Screen Influenza A (Rapid) Influenza B (Rapid) RSV Rapid 12/20/18 12/20/18 12/20/18 06:45 06:45 06:45 WBC RBC Hgb Hct MCV MCH MCHC RDW Plt Count MPV Absolute Neuts (auto) Neutrophils % Lymphocytes % Monocytes % Eosinophils % Basophils % Nucleated RBC % PT with INR 12.60 INR 1.07 PTT (Actin FS) 27.9 Sodium 141 Potassium 4.1 Chloride 104 Carbon Dioxide 33 H Anion Gap 4 L BUN 10.4 Creatinine 0.4 L Est GFR (CKD-EPI)AfAm 128.47 Est GFR (CKD-EPI)NonAf 110.85 POC Glucometer Random Glucose 290 H Calcium 9.0 Phosphorus 2.3 L Magnesium 1.8 Ferritin 45.5 Total Bilirubin 0.2 AST 10 L ALT 18 Alkaline Phosphatase 82 Troponin I B-Natriuretic Peptide Cancelled Total Protein 6.1 L Albumin 2.6 L Urine Color Urine Appearance Urine pH Ur Specific [place] Urine Protein Urine Glucose (UA) Urine Ketones Urine Blood Urine Nitrite Urine Bilirubin Urine Urobilinogen Ur Leukocyte Esterase Opiates Screen Methadone Screen Barbiturate Screen Phencyclidine Screen Ur Amphetamines Screen MDMA (Ecstasy) Screen Benzodiazepines Screen Cocaine Screen U Marijuana (THC) Screen Influenza A (Rapid) Influenza B (Rapid) RSV Rapid Active Medications Generic Name Dose Route Start Last Admin Trade Name Freq PRN Reason Stop Dose Admin Albuterol Sulfate 1 amp 12/20/18 02:45 Ventolin 0.083% Nebulizer Soln - NEB Q4H PRN SHORT OF BREATH/WHEEZING Albuterol Sulfate 1 amp 12/20/18 08:00 12/20/18 07:56 Ventolin 0.083% Nebulizer Soln - NEB 1 amp RQID [facility] Administration Albuterol Sulfate puff 12/20/18 10:00 Ventolin Hfa Inhaler - IH QID [facility] Aspirin 81 mg 12/20/18 10:00 Asa - PO DAILY [facility] Calcium Carbonate/Cholecalciferol 1 tab 12/20/18 10:00 Os-Sj 500+D - PO DAILY [facility] Enoxaparin Sodium 40 mg 12/20/18 10:00 Lovenox - SQ DAILY [facility] Gabapentin 300 mg 12/20/18 06:00 12/20/18 05:44 Neurontin - PO 300 mg TID [facility] Administration Guaifenesin 5 ml 12/20/18 03:57 Robitussin Dm - PO Q6H PRN COUGH Piperacillin Sod/Tazobactam 50 mls @ 100 mls/hr 12/20/18 10:00 Sod 3.375 gm/ Dextrose IVPB Q8H-IV [facility] Protocol Piperacillin Sod/Tazobactam 50 mls @ 100 mls/hr 12/20/18 10:00 Sod 3.375 gm/ Dextrose IVPB 12/20/18 18:29 Q8H-IV [facility] Protocol Insulin Aspart 1 vial 12/20/18 07:00 12/20/18 06:13 Novolog Vial Sliding Scale - SQ 8 units ACHS [facility] Administration Protocol Insulin Detemir 26 units 12/20/18 22:00 Levemir Vial SQ HS [facility] Magnesium Hydroxide 15 ml 12/20/18 03:57 Milk Of Magnesia - PO DAILY PRN INDIGESTION Methylprednisolone Sodium Succinate 60 mg 12/20/18 03:00 12/20/18 08:22 Solu-Medrol - IVPUSH 60 mg Q6H-IV [facility] Administration Naphazoline HCl/Pheniramine Maleate 1 drop 12/20/18 06:00 12/20/18 06:12 Visine-A - OU Not Given TID [facility] Nicotine 14 mg 12/20/18 10:00 Nicoderm Patch - TD DAILY [facility] Nitroglycerin 0.4 mg 12/20/18 03:57 Nitrostat - SL PRN PRN FOR CHEST PAIN Pantoprazole Sodium 20 mg 12/20/18 10:00 Protonix - PO DAILY [facility] Vancomycin HCl 1,000 mg 12/20/18 22:00 Vancomycin (Pre-Docked) IVPB DAILY@2200 [facility] Protocol ASSESSMENT/PLAN: The patient is a 63 yo F with PMHx of HTN, HLD, DM, CAD, COPD on home oxygen 2- 3 L, right lung Ca s/p stereotactic radiotherapy x 2, stable PET scan, active smoker, presenting to the ED from [facility] for SOB, hypoxia, found to have possible infiltrate. Admitted for COPD/PNA. Lung cancer COPD/PNA CAD COPD HTN DMII neuropathy Plan: The patient has stable last PET scan, discussed with Dr Jay, her radiation oncologist that has been following the patient since diagnosis. Will f/u recommendations. We recommend to obtain imaging (CT abdomen/pelvis while still in the hospital and PET scan later after resolution of infection) in order to stage the patient. Dispo: We will continue to follow the patient. Thank you for this consultative opportunity. Problem List - Problems (1) COPD (chronic obstructive pulmonary disease) Code(s): J44.9 - CHRONIC OBSTRUCTIVE PULMONARY DISEASE, UNSPECIFIED (2) Lung cancer Code(s): C34.90 - MALIGNANT NEOPLASM OF UNSP PART OF UNSP BRONCHUS OR LUNG (3) Diabetes Code(s): E11.9 - TYPE 2 DIABETES MELLITUS WITHOUT COMPLICATIONS (4) Hypertension Code(s): I10 - ESSENTIAL (PRIMARY) HYPERTENSION (5) Requires oxygen therapy Code(s): Z99.81 - DEPENDENCE ON SUPPLEMENTAL OXYGEN Visit type - Emergency Visit Emergency Visit: Yes ED Registration Date: 12/19/18 Care time: The patient presented to the Emergency Department on the above date and was hospitalized for further evaluation of their emergent condition. - New Patient This patient is new to me today: Yes Date on this admission: 12/20/18 - Critical Care Critical Care patient: No
[2018-12-20] MEDS ORDERED: DEXTROSE 5%-WATER - 50 ML IVPB ONE ×3 (10:28→21:51)
[2018-12-20] MEDS ORDERED: PIPERACILLIN/TAZOBACTAM 3.375 GM VIAL IVPB ONE ×3 (10:28→21:50)
[2018-12-20] MEDS: NICOTINE 14 MG/24 HOURS TOPICAL PATCH TD SCH (10:42)
[2018-12-20] MEDS: ASPIRIN 81 MG CHEWABLE TABLETS PO SCH (10:42)
[2018-12-20] MEDS: PANTOPRAZOLE 20 MG TABLET (FP) PO SCH (10:42)
[2018-12-20] MEDS: CALCIUM 500MG/VIT-D 200 UNITS COMBO TABLET (FP) PO SCH (10:42)
[2018-12-20] MEDS: ENOXAPARIN NA (PORCINE) 40 MG/0.4 ML DISP.SYRIN SQ SCH (10:42)
--- NOTE | 2018-12-20 11:13 | PN ---
Progress Note (short form) - Note Progress Note: ID CONSULT DICTATED R/O HCAP EXACERBATION COPD LUNG CA OBTAIN C/S EMPIRIC ZOSYN
[2018-12-20 11:20] LABS: ANISOCYTOSIS 2+; MACROCYTOSIS 0; OVALOCYTE 2+; PLATELET ESTIMATE NORMAL
--- NOTE | 2018-12-20 11:42 | EKG ---
Test Reason : Blood Pressure : / mmHG Vent. Rate : 094 BPM Atrial Rate : 094 BPM P-R Int : 134 ms QRS Dur : 084 ms QT Int : 366 ms P-R-T Axes : 071 052 069 degrees QTc Int : 457 ms NORMAL SINUS RHYTHM NORMAL ECG NO PREVIOUS ECGS AVAILABLE Confirmed by RAMAN DENG MD ([id number]) on 12/20/2018 11:41:48 AM Referred By: Confirmed By:RAMAN DENG MD
--- NOTE | 2018-12-20 12:00 | PN ---
Teaching Attending Note Name of Resident: Mirian Ku ATTENDING PHYSICIAN STATEMENT I saw and evaluated the patient. I reviewed the resident's note and discussed the case with the resident. I agree with the resident's findings and plan as documented. SUBJECTIVE: Patient seen and examined 63 year old female with COPD, smoker, with history of lung ca - s/p stereotactic radiosurgery x2 for right lung overlap areas. Entered with exacerbation of COPD and has improvement in hospital on antibiotic therapy and steroids. Last Vital Signs Temp Pulse Resp BP Pulse Ox 97.7 F 104 H 20 140/84 91 L 12/20/18 07:04 12/20/18 07:04 12/20/18 07:04 12/20/18 07:04 12/20/18 06:30 HEENT: BARBER, EOM Intact Oropharynx: No thrush, No mucositis, edentulous Neck: Supple Nodes: Without adenopathy Breasts: Without masses Cor: RSR, No murmurs, No gallops Lungs-bronchial breath sounds and scattered rhonchi Abd: Soft, Normal bowel sounds, No organomegaly Ext:No significant edema Skin: No rashes, Integument intact CBC, BMP 12/20/18 06:45 12/20/18 06:45 Current Medications Generic Name Dose Route Start Last Admin Trade Name Freq PRN Reason Stop Dose Admin Albuterol Sulfate 1 amp 12/20/18 02:45 Ventolin 0.083% Nebulizer Soln - NEB Q4H PRN SHORT OF BREATH/WHEEZING Albuterol Sulfate 1 amp 12/20/18 08:00 12/20/18 07:56 Ventolin 0.083% Nebulizer Soln - NEB 1 amp RQID [facility] Administration Aspirin 81 mg 12/20/18 10:00 12/20/18 10:42 Asa - PO 81 mg DAILY [facility] Administration Budesonide/Formoterol Fumarate 2 puff 12/20/18 22:00 Symbicort 160/4.5mcg - IH BID [facility] Calcium Carbonate/Cholecalciferol 1 tab 12/20/18 10:00 12/20/18 10:42 Os-Sj 500+D - PO 1 tab DAILY [facility] Administration Enoxaparin Sodium 40 mg 12/20/18 10:00 12/20/18 10:42 Lovenox - SQ 40 mg DAILY [facility] Administration Gabapentin 300 mg 12/20/18 06:00 12/20/18 05:44 Neurontin - PO 300 mg TID [facility] Administration Guaifenesin 5 ml 12/20/18 03:57 Robitussin Dm - PO Q6H PRN COUGH Piperacillin Sod/Tazobactam 50 mls @ 100 mls/hr 12/20/18 18:00 Sod 3.375 gm/ Dextrose IVPB Q8H-IV [facility] Protocol Insulin Aspart 1 vial 12/20/18 07:00 12/20/18 06:13 Novolog Vial Sliding Scale - SQ 8 units ACHS [facility] Administration Protocol Insulin Detemir 26 units 12/20/18 22:00 Levemir Vial SQ HS [facility] Magnesium Hydroxide 15 ml 12/20/18 03:57 Milk Of Magnesia - PO DAILY PRN INDIGESTION Methylprednisolone Sodium Succinate 60 mg 12/20/18 22:00 Solu-Medrol - IVPUSH BID [facility] Naphazoline HCl/Pheniramine Maleate 1 drop 12/20/18 06:00 12/20/18 06:12 Visine-A - OU Not Given TID [facility] Nicotine 14 mg 12/20/18 10:00 12/20/18 10:42 Nicoderm Patch - TD 14 mg DAILY [facility] Administration Nitroglycerin 0.4 mg 12/20/18 03:57 Nitrostat - SL PRN PRN FOR CHEST PAIN Pantoprazole Sodium 20 mg 12/20/18 10:00 12/20/18 10:42 Protonix - PO 20 mg DAILY [facility] Administration Impression: COPD exacerbation /?pneumonia Lung ca - s/p SRS x 2 Infiltrates vs lung masses DM (II) HBP Suggest bone scan, Abdominal CT scan. Will need outpatient PET to complete staging to decide on further therapy. OBJECTIVE: ASSESSMENT AND PLAN:
--- NOTE | 2018-12-20 13:59 | PN ---
Progress Note (short form) - Note Progress Note: Radiation Oncology Pt seen and examined, chart/films reviewed, last office note and PET-CT report placed on chart, full consult dictated. A 63 yo woman w oxygen-dep COPD and hx of Squamous Cell CA of RLL x 2 s/p SBRT ( 05/2015 and 01/2018) with complete metabolic PET response after treatments. She has had localized disease and recurrence thus far and last PET-CT in Jun 2018 failed to demonstrate metastatic disease. She has a history of bilateral pulmonary nodules usually associated with episodes of her COPD exacerbations which resolve on subsequent CTs. At this time, would continue management of her COPD and empiric PNA tx, consider repeat CT chest in 3-4 weeks after resolution of acute illness. She was scheduled to follow up with me this month and may do so when discharged.
--- NOTE | 2018-12-20 16:28 | CONS ---
DATE OF CONSULTATION: DATE OF DICTATION: 12/20/2018 HISTORY OF PRESENT ILLNESS: The patient is a 63-year-old female who is evaluated for pneumonia. She was recently hospitalized at [facility], [place], with pneumonia. She had developed respiratory failure and required intubation. The patient states that she was treated and successfully extubated and transferred to a halfway facility for rehabilitation. While at the rehabilitation facility she developed worsening short of breath at rest and worsening cough. [facility] apparently showed a right upper lobe pneumonia. The patient states that she became ill at the halfway facility after her roommate had left the window open exposing her to a draft. She developed worsening cough which was nonproductive. She denies any chest pain or hemoptysis, no complaints of high grade fever or shaking chills. Patient has a history of lung cancer, however additional details are not available at this time. She denies any recent chemotherapy. She is a longtime smoker . She has had recent hospitalizations, no recent travel. She is originally from [place], has been living in [place] for 30 years. She also has a history of intranasal heroin in the past and methadone. PAST MEDICAL HISTORY: Positive for lung cancer, hypertension, hyperlipidemia, diabetes mellitus, coronary artery disease, COPD, allergies. ALLERGIES: NIFEDIPINE. MEDICATION: Include albuterol, aspirin, Lovenox, Neurontin, NovoLog, methadone, methylprednisolone, Protonix. SOCIAL HISTORY: As per HPI. LABORATORY DATA: White count 4.0, hematocrit 29.4, platelet count 177, creatinine 0.4, urinalysis negative, flu swab negative. Cultures are pending. CAT scan of the chest shows moderate COPD with emphysematous changes involving both upper lobes, patchy air space opacities suggestive of infiltrates and 3-cm mass-like density in the right lower lobe suggestive of focal consolidation versus mass. PHYSICAL EXAMINATION: General: On physical examination, she is awake and alert, in no acute distress. She is slightly short of breath at rest. Vital signs: Temperature 97.7, blood pressure 140/84, pulse 104 regular, respirations 22 per minute. HEENT: Sclerae anicteric. Cardiovascular: Heart sounds S1, S2. Lungs: Diminished breath sounds throughout. Abdomen: Soft, nontender. Extremities: Negative for edema. IMPRESSION: 1. Rule out healthcare-acquired pneumonia. 2. Exacerbation chronic obstructive pulmonary disease. 3. History of lung cancer. Await culture results. Empiric antibiotic coverage with Zosyn for possible healthcare-acquired pathogens versus postobstructive process. Further recommendations pending cultures. Inhaled bronchodilators and corticosteroids. Thank you for the kind referral . RAMAN OLIVAS M.D. [id number]
--- NOTE | 2018-12-20 17:08 | CONS ---
DATE OF CONSULTATION: 12/20/2018 REFERRING PHYSICIAN: Kulwinder Navarro M.D. REASON FOR CONSULTATION: Followup for lung cancer status post stereotactic radiation therapy. 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 She was not a surgical candidate. She completed stereotactic body radiotherapy with us in May 2015 with a complete metabolic response on PET CT scan. She continued to smoke and had multiple hospital admissions for recurrent respiratory illness. Last year the PET CT demonstrated increased hypermetabolic activity in the right lower lobe adjacent to the prior treatment field. A CT-guided percutaneous biopsy confirmed recurrent squamous cell carcinoma. The tumor was located adjacent to the previously treated tumor/scar. She refused chemotherapy evaluation. She had no suspicious metastatic disease and elected to receive repeat irradiation with stereotactic body radiotherapy completing treatment in January 2018. She was last seen in May 2018 with chronic musculoskeletal aches and significant shortness of breath requiring home oxygen. A PET CT in June 2018 (report placed on chart) showed no residual or new hypermetabolic activity. There are changes within the right lower lobe consistent with post treatment fibrosis. She was recently admitted to the outside hospital for COPD exacerbation and acute respiratory failure status post intubation x1 day. She was discharged to the shelter facility on BiPAP. She is now readmitted to [facility] presenting with fever, increasing shortness of breath and cough. COPD exacerbation and presumed pneumonia are being treated. She denies hemoptysis, chest pain, hoarseness, weight loss, or change in appetite. She has a couch productive of yellow/white sputum. She is ambulatory and feels that she is improving. PAST MEDICAL HISTORY: Prior radiotherapy as noted above. Oxygen dependent COPD previously on BiPAP, history of IV drug abuse with heroin, currently on methadone. Hypertension, diabetes mellitus, coronary artery disease, with non-STEMI status post cardiac catheterization in 2017. PAST SURGICAL HISTORY: None. ALLERGIES: NIFEDIPINE. CURRENT MEDICATIONS: Solu-Medrol, Symbicort, Zosyn, Lovenox subcutaneous, Neurontin, Robitussin p.r.n., nicotine patch, albuterol nebulizer, Levemir insulin, aspirin 81 mg, Protonix, calcium, vitamin D. SOCIAL HISTORY: She lives with her . She is an active lifelong smoker but has not had a cigarette since recent hospitalization. She used heroin, on methadone. REVIEW OF SYSTEMS: As noted above. PHYSICAL EXAMINATION: GENERAL: Ill appearing female appearing her stated age in no acute distress. Ambulator, seen ambulating to the bathroom. VITAL SIGNS: Temperature 97.9, blood pressure 126/70, pulse 101, respiratory rate 18, SaO2 of 91% on 3 L nasal cannula. HEENT: Moist mucous membranes. Anicteric sclerae. Mild pallor. Clear oral cavity. NECK: Supple. No mass. CHEST: Bilateral rhonchi, decreased lung sounds in the right lower lobe. No axillary adenopathy. No suspicious skin changes or residual hyperpigmentation the treatment field. CARDIOVASCULAR: Regular. ABDOMEN: Soft. Nontender. Nondistended. EXTREMITIES: Full range of motion without edema. MUSCULOSKELETAL: No spine or paraspinal mass or tenderness. NEUROLOGICAL: Grossly nonfocal. RADIOLOGIC DATA: CT chest COPD changes in the upper lobes, bilateral patchy air space opacity suggest of the infiltrate, mass-like density in the right lower lobe medially along the inferior margin of the right hilum, borderline paratracheal lymph nodes. LABORATORY DATA: WBC 4.0, hemoglobin 8.9, platelets 177. Electrolytes within normal limits. BUN 10.4, creatinine 0.4, LFTs normal, albumin 2.6, calcium 9.0. IMPRESSION/PLAN: A 63-year-old chronically ill woman with oxygen dependent chronic obstructive pulmonary disease status post hat-MT-bdsreocck myocardial infarction with history of localized right lower lobe squamous cell carcinoma and recurrence status post 2 course of SBRT in 2014 and 2018. Last PET CT c/w a complete metabolic response with fibrotic changes in the RLL treatment field. Clinically her respiratory status is stable and improving on current management. She will continue with ID and pulmonary and I would recommend a following up chest CT scan in a few weeks if she continues to improve. If current changes on the CT chest worsen then she will need a follow up PET CT. I discussed her care with Dr. Navarro. I asked her to follow up with me following additional recovery after she is discharged and she has our office number. Thank you for the courtesy of this consultation. COLLEEN ISABEL M.D. PREETHI/[id number]
[2018-12-20] MEDS: PIPERACILLIN/TAZOB 3.375 GM 3.375 GM in DEXTROSE 5%-WATER - 50 ML IVPB SCH (17:22)
--- NOTE | 2018-12-20 17:40 | PN ---
Physical Exam: SUBJECTIVE: Patient seen and examined at bedside. Sitting in bed eating breakfast. Denies chest pain or shortness of breath. OBJECTIVE: Vital Signs Period Temp Pulse Resp BP Sys/Laura Pulse Ox Last 24 Hr 97.7 F-98.5 F 92-104 18-22 115-140/66-84 91-100 GENERAL: NAD HEAD: Normal with no signs of trauma. EYES: EOMI Sclera Clear ENT: MMM NECK: Trachea midline, full range of motion, supple. LUNGS: Crackles throughout, expiratory wheezing throughout HEART: RRR S1S2 ABDOMEN: Soft, NDNT EXTREMITIES: No CCE appreciated NEUROLOGICAL: Cranial nerves II through XII grossly intact. Normal speech.. PSYCH: Normal mood, normal affect. SKIN: Warm, dry, normal turgor, no rashes or lesions noted Laboratory Results - last 24 hr 12/19/18 12/19/18 12/19/18 21:50 21:50 21:50 WBC 5.7 RBC 4.21 Hgb 8.9 L Hct 29.8 L D MCV 70.8 L MCH 21.2 L MCHC 30.0 L RDW 20.8 H Plt Count 173 MPV 9.1 Absolute Neuts (auto) Neutrophils % Neutrophils % (Manual) Band Neutrophils % Lymphocytes % Lymphocytes % (Manual) Monocytes % Monocytes % (Manual) Eosinophils % Eosinophils % (Manual) Basophils % Basophils % (Manual) Myelocytes % (Man) Promyelocytes % (Man) Blast Cells % (Manual) Nucleated RBC % Metamyelocytes Hypochromia Platelet Estimate Polychromasia Poikilocytosis Anisocytosis Microcytosis Macrocytosis Ovalocytes PT with INR 13.30 H INR 1.13 H PTT (Actin FS) Sodium 137 Potassium 5.1 Chloride 100 Carbon Dioxide 33 H Anion Gap 3 L BUN 13.5 Creatinine 0.4 L Est GFR (CKD-EPI)AfAm 128.47 Est GFR (CKD-EPI)NonAf 110.85 POC Glucometer Random Glucose 302 H* Calcium 8.8 Phosphorus Magnesium Ferritin Total Bilirubin 0.2 AST 18 ALT 19 Alkaline Phosphatase 83 Troponin I B-Natriuretic Peptide Total Protein 6.3 L Albumin 2.8 L Urine Color Urine Appearance Urine pH Ur Specific [place] Urine Protein Urine Glucose (UA) Urine Ketones Urine Blood Urine Nitrite Urine Bilirubin Urine Urobilinogen Ur Leukocyte Esterase Opiates Screen Methadone Screen Barbiturate Screen Phencyclidine Screen Ur Amphetamines Screen MDMA (Ecstasy) Screen Benzodiazepines Screen Cocaine Screen U Marijuana (THC) Screen Influenza A (Rapid) Influenza B (Rapid) RSV Rapid 12/19/18 12/19/18 12/19/18 21:50 21:50 21:50 WBC RBC Hgb Hct MCV MCH MCHC RDW Plt Count MPV Absolute Neuts (auto) Neutrophils % Neutrophils % (Manual) Band Neutrophils % Lymphocytes % Lymphocytes % (Manual) Monocytes % Monocytes % (Manual) Eosinophils % Eosinophils % (Manual) Basophils % Basophils % (Manual) Myelocytes % (Man) Promyelocytes % (Man) Blast Cells % (Manual) Nucleated RBC % Metamyelocytes Hypochromia Platelet Estimate Polychromasia Poikilocytosis Anisocytosis Microcytosis Macrocytosis Ovalocytes PT with INR INR PTT (Actin FS) Sodium Potassium Chloride Carbon Dioxide Anion Gap BUN Creatinine Est GFR (CKD-EPI)AfAm Est GFR (CKD-EPI)NonAf POC Glucometer Random Glucose Calcium Phosphorus Magnesium Ferritin Total Bilirubin AST ALT Alkaline Phosphatase Troponin I < 0.02 B-Natriuretic Peptide Total Protein Albumin Urine Color Yellow Urine Appearance Clear Urine pH 6.0 Ur Specific [place] 1.040 H Urine Protein Negative Urine Glucose (UA) 3+ H Urine Ketones Negative Urine Blood Negative Urine Nitrite Negative Urine Bilirubin Negative Urine Urobilinogen 1.0 Ur Leukocyte Esterase Negative Opiates Screen Methadone Screen Barbiturate Screen Phencyclidine Screen Ur Amphetamines Screen MDMA (Ecstasy) Screen Benzodiazepines Screen Cocaine Screen U Marijuana (THC) Screen Influenza A (Rapid) Negative Influenza B (Rapid) Negative RSV Rapid 12/19/18 12/19/18 12/20/18 21:50 21:50 03:19 WBC RBC Hgb Hct MCV MCH MCHC RDW Plt Count MPV Absolute Neuts (auto) Neutrophils % Neutrophils % (Manual) Band Neutrophils % Lymphocytes % Lymphocytes % (Manual) Monocytes % Monocytes % (Manual) Eosinophils % Eosinophils % (Manual) Basophils % Basophils % (Manual) Myelocytes % (Man) Promyelocytes % (Man) Blast Cells % (Manual) Nucleated RBC % Metamyelocytes Hypochromia Platelet Estimate Polychromasia Poikilocytosis Anisocytosis Microcytosis Macrocytosis Ovalocytes PT with INR INR PTT (Actin FS) Sodium Potassium Chloride Carbon Dioxide Anion Gap BUN Creatinine Est GFR (CKD-EPI)AfAm Est GFR (CKD-EPI)NonAf POC Glucometer 348 Random Glucose Calcium Phosphorus Magnesium Ferritin Total Bilirubin AST ALT Alkaline Phosphatase Troponin I B-Natriuretic Peptide Total Protein Albumin Urine Color Urine Appearance Urine pH Ur Specific [place] Urine Protein Urine Glucose (UA) Urine Ketones Urine Blood Urine Nitrite Urine Bilirubin Urine Urobilinogen Ur Leukocyte Esterase Opiates Screen Negative Methadone Screen Positive A* Barbiturate Screen Negative Phencyclidine Screen Negative Ur Amphetamines Screen Negative MDMA (Ecstasy) Screen Negative Benzodiazepines Screen Negative Cocaine Screen Negative U Marijuana (THC) Screen Negative Influenza A (Rapid) Influenza B (Rapid) RSV Rapid Negative 12/20/18 12/20/18 12/20/18 05:42 06:45 06:45 WBC 4.0 RBC 4.25 Hgb 8.9 L Hct 29.4 L MCV 69.2 L MCH 21.0 L MCHC 30.3 L RDW 20.7 H Plt Count 177 MPV 8.9 Absolute Neuts (auto) 3.6 Neutrophils % 91.1 H D Neutrophils % (Manual) 96.0 H Band Neutrophils % 0.0 Lymphocytes % 7.1 L D Lymphocytes % (Manual) 3.0 L Monocytes % 1.6 L D Monocytes % (Manual) 0 L Eosinophils % 0.0 D Eosinophils % (Manual) 1.0 Basophils % 0.2 Basophils % (Manual) 0.0 Myelocytes % (Man) 0 Promyelocytes % (Man) 0 Blast Cells % (Manual) 0 Nucleated RBC % 0 Metamyelocytes 0 Hypochromia 1+ Platelet Estimate Normal Polychromasia 1+ Poikilocytosis 2+ Anisocytosis 2+ Microcytosis 2+ Macrocytosis 0 Ovalocytes 2+ PT with INR INR PTT (Actin FS) Sodium Potassium Chloride Carbon Dioxide Anion Gap BUN Creatinine Est GFR (CKD-EPI)AfAm Est GFR (CKD-EPI)NonAf POC Glucometer 301 Random Glucose Calcium Phosphorus Magnesium Ferritin Total Bilirubin AST ALT Alkaline Phosphatase Troponin I B-Natriuretic Peptide 179.4 H Total Protein Albumin Urine Color Urine Appearance Urine pH Ur Specific [place] Urine Protein Urine Glucose (UA) Urine Ketones Urine Blood Urine Nitrite Urine Bilirubin Urine Urobilinogen Ur Leukocyte Esterase Opiates Screen Methadone Screen Barbiturate Screen Phencyclidine Screen Ur Amphetamines Screen MDMA (Ecstasy) Screen Benzodiazepines Screen Cocaine Screen U Marijuana (THC) Screen Influenza A (Rapid) Influenza B (Rapid) RSV Rapid 12/20/18 12/20/1819 06:45 06:45 06:45 WBC RBC Hgb Hct MCV MCH MCHC RDW Plt Count MPV Absolute Neuts (auto) Neutrophils % Neutrophils % (Manual) Band Neutrophils % Lymphocytes % Lymphocytes % (Manual) Monocytes % Monocytes % (Manual) Eosinophils % Eosinophils % (Manual) Basophils % Basophils % (Manual) Myelocytes % (Man) Promyelocytes % (Man) Blast Cells % (Manual) Nucleated RBC % Metamyelocytes Hypochromia Platelet Estimate Polychromasia Poikilocytosis Anisocytosis Microcytosis Macrocytosis Ovalocytes PT with INR 12.60 INR 1.07 PTT (Actin FS) 27.9 Sodium 141 Potassium 4.1 Chloride 104 Carbon Dioxide 33 H Anion Gap 4 L BUN 10.4 Creatinine 0.4 L Est GFR (CKD-EPI)AfAm 128.47 Est GFR (CKD-EPI)NonAf 110.85 POC Glucometer Random Glucose 290 H Calcium 9.0 Phosphorus 2.3 L Magnesium 1.8 Ferritin 45.5 Total Bilirubin 0.2 AST 10 L ALT 18 Alkaline Phosphatase 82 Troponin I B-Natriuretic Peptide Cancelled Total Protein 6.1 L Albumin 2.6 L Urine Color Urine Appearance Urine pH Ur Specific [place] Urine Protein Urine Glucose (UA) Urine Ketones Urine Blood Urine Nitrite Urine Bilirubin Urine Urobilinogen Ur Leukocyte Esterase Opiates Screen Methadone Screen Barbiturate Screen Phencyclidine Screen Ur Amphetamines Screen MDMA (Ecstasy) Screen Benzodiazepines Screen Cocaine Screen U Marijuana (THC) Screen Influenza A (Rapid) Influenza B (Rapid) RSV Rapid 12/20/18 12/20/18 12:07 17:21 WBC RBC Hgb Hct MCV MCH MCHC RDW Plt Count MPV Absolute Neuts (auto) Neutrophils % Neutrophils % (Manual) Band Neutrophils % Lymphocytes % Lymphocytes % (Manual) Monocytes % Monocytes % (Manual) Eosinophils % Eosinophils % (Manual) Basophils % Basophils % (Manual) Myelocytes % (Man) Promyelocytes % (Man) Blast Cells % (Manual) Nucleated RBC % Metamyelocytes Hypochromia Platelet Estimate Polychromasia Poikilocytosis Anisocytosis Microcytosis Macrocytosis Ovalocytes PT with INR INR PTT (Actin FS) Sodium Potassium Chloride Carbon Dioxide Anion Gap BUN Creatinine Est GFR (CKD-EPI)AfAm Est GFR (CKD-EPI)NonAf POC Glucometer 335 314 Random Glucose Calcium Phosphorus Magnesium Ferritin Total Bilirubin AST ALT Alkaline Phosphatase Troponin I B-Natriuretic Peptide Total Protein Albumin Urine Color Urine Appearance Urine pH Ur Specific [place] Urine Protein Urine Glucose (UA) Urine Ketones Urine Blood Urine Nitrite Urine Bilirubin Urine Urobilinogen Ur Leukocyte Esterase Opiates Screen Methadone Screen Barbiturate Screen Phencyclidine Screen Ur Amphetamines Screen MDMA (Ecstasy) Screen Benzodiazepines Screen Cocaine Screen U Marijuana (THC) Screen Influenza A (Rapid) Influenza B (Rapid) RSV Rapid Active Medications Generic Name Dose Route Start Last Admin Trade Name Freq PRN Reason Stop Dose Admin Albuterol Sulfate 1 amp 12/20/18 02:45 Ventolin 0.083% Nebulizer Soln - NEB Q4H PRN SHORT OF BREATH/WHEEZING Albuterol Sulfate 1 amp 12/20/18 08:00 12/20/18 16:38 Ventolin 0.083% Nebulizer Soln - NEB 1 amp RQID DEAN Administration Aspirin 81 mg 12/20/18 10:00 12/20/18 10:42 Asa - PO 81 mg DAILY DEAN Administration Budesonide/Formoterol Fumarate 2 puff 12/20/18 22:00 Symbicort 160/4.5mcg - IH BID DEAN Calcium Carbonate/Cholecalciferol 1 tab 12/20/18 10:00 12/20/18 10:42 Os-Sj 500+D - PO 1 tab DAILY DEAN Administration Enoxaparin Sodium 40 mg 12/20/18 10:00 12/20/18 10:42 Lovenox - SQ 40 mg DAILY DEAN Administration Gabapentin 300 mg 12/20/18 06:00 12/20/18 14:45 Neurontin - PO 300 mg TID DEAN Administration Guaifenesin 5 ml 12/20/18 03:57 Robitussin Dm - PO Q6H PRN COUGH Piperacillin Sod/Tazobactam 50 mls @ 100 mls/hr 12/20/18 18:00 12/20/18 17:22 Sod 3.375 gm/ Dextrose IVPB 100 mls/hr Q8H-IV DEAN Administration Protocol Insulin Aspart 1 vial 12/20/18 07:00 12/20/18 17:22 Novolog Vial Sliding Scale - SQ 8 units ACHS DEAN Administration Protocol Insulin Detemir 26 units 12/20/18 22:00 Levemir Vial SQ HS DEAN Magnesium Hydroxide 15 ml 12/20/18 03:57 Milk Of Magnesia - PO DAILY PRN INDIGESTION Methylprednisolone Sodium Succinate 60 mg 12/20/18 22:00 Solu-Medrol - IVPUSH BID DEAN Naphazoline HCl/Pheniramine Maleate 1 drop 12/20/18 06:00 12/20/18 14:45 Visine-A - OU 1 drop TID DEAN Administration Nicotine 14 mg 12/20/18 10:00 12/20/18 10:42 Nicoderm Patch - TD 14 mg DAILY DEAN Administration Nitroglycerin 0.4 mg 12/20/18 03:57 Nitrostat - SL PRN PRN FOR CHEST PAIN Pantoprazole Sodium 20 mg 12/20/18 10:00 12/20/18 10:42 Protonix - PO 20 mg DAILY DEAN Administration ASSESSMENT/PLAN: Pt is a 63 yo F with PMHx of HTN, HLD, DM, CAD, COPD on home oxygen 2-3 L, Right lung CA s/p radiation a year ago, active smoker, presenting to the ED from [facility] for worsening Shortness of breath at rest and dry cough for 2 days. #SOB 2/2 COPD Exacerbation -Pt recently intubated 11/[address] [facility] CT scan performed there revealed infiltrates in RML and RLL. - Received 125 solumed in ED - 60mg BID Solumedrol - mary Carpio I[facility], BNP---> 179 -On Home O2 2-3 L -Bipap at night -Will place on ABx as possible Pneumonia though no WBC, or fever appreciated. I.D on board. Zosyn. #DM- -Levemir 26U HS -ISS #Neuropathy -Cont gabapentin #HTN: -HTN medications stopped while at [facility]. Will monitor BP during stay and assess need for reinstitution of meds. #HLD: No statins documented #CAD: Unclear hx, appears she got cath without stents in past. Plavix held by [facility], cont ASA #Right lung CA - s/p radiation a year ago -Heme/Onc and Radiation onc input appreciated DVT ppx: Lovenox sq Protonix #FEN Diabetic Diet Monitor Electrolytes No Standing Fluids Visit type - Emergency Visit Emergency Visit: Yes ED Registration Date: 12/19/18 Care time: The patient presented to the Emergency Department on the above date and was hospitalized for further evaluation of their emergent condition. - New Patient This patient is new to me today: Yes Date on this admission: 12/20/18 - Critical Care Critical Care patient: No - Discharge Referral Referred to [facility] No
--- NOTE | 2018-12-20 18:09 | PN ---
Teaching Attending Note Name of Resident: Rey Peralta ATTENDING PHYSICIAN STATEMENT I saw and evaluated the patient. I reviewed the resident's note and discussed the case with the resident. I agree with the resident's findings and plan as documented. SUBJECTIVE: Reports improvement in her SOB and wheezing. has no fever or chills. denies any fever or chills at rehab. No ABd pain or diarrhea , no productive cough OBJECTIVE: NAD. comfortable in bed MMM CV: RRR. no MRG , No JVD Lungs: rales b/l bases and scattered wheezes. Abd: soft, NT, ND, NL BS Ext : No edema . Abd: soft, NT, ND , Neg hepatojugular reflux ASSESSMENT AND PLAN: Unfortunate 63 y/o lady with H/o SCC of RLL s/p Rtx with local recurrence and no Mets,COPD on 4 L o2, recent hospitalization to [facility] fro COPD exacerbation requiring intubation ( dc 12/11/18), HTN, HLP, CAD, who presented with SOB and Hypoxia . She was found to have acute COPD exacerbation. 1- Acute hypoxic resp failure due to acute COPD exacerbation : - cont steroids and decrease to BID - cont Nebs . add standing Nebs - add symbicort - Abx per ID for possible PNA - records obtained form [facility] , she was not treated for PNA there. she was treated and intubated for COPD. in CT scan there infiltrates in RML and RLL were seen. 2- H/o Lung sca: s/p radiation. Appreciate Dr. Jay and Dr. Navarro's input - obtain Abd/P CT and Bone scan - out pt PET 3- DM : cont levemir nad SSI 4- H/o CAD: per records form [facility]. She was on ASA and plavix and plavix was stopped. ( also HCTZ and Norvasc ) - cont asa 5- Mentained on methadone. will resume DVT PX : Lovenox
[2018-12-20] MEDS ORDERED: INSULIN (LEVEMIR) 100 UNITS/ML UNITS SQ SCH (22:00)
[2018-12-20] MEDS: BUDESONIDE/FORMETEROL FUMARATE 160/4.5 mcg INHALER IH SCH (22:08)
[2018-12-21] MEDS: PIPERACILLIN/TAZOB 3.375 GM 3.375 GM in DEXTROSE 5%-WATER - 50 ML IVPB SCH ×3 (02:20→18:33)
[2018-12-21 04:12] LABS: SERUM IRON SATURATION 8 % (15-55); TOTAL IRON BINDING CAPACITY 266 ug/dL (250-450); UIBC 246 ug/dL (118-369)
[2018-12-21] MEDS: GABAPENTIN 300 MG CAPSULE (FP) PO SCH ×3 (05:20→21:34)
[2018-12-21] MEDS: NAPHAZOLINE/PHENIRAMINE OPHTHALMIC 15 ML BOTTLE OU SCH ×3 (06:11→21:36)
[2018-12-21] MEDS: INSULIN SLIDING SCALE (NOVOLOG) 1 VIAL SQ SCH ×4 (06:12→21:39)
[2018-12-21] MEDS: ALBUTEROL SO4 0.083% IH SOL 2.5 MG/3 ML VIAL.NEB. NEB SCH ×4 (07:39→20:51)
[2018-12-21 08:36] LABS: BLOOD UREA NITROGEN 11.2 mg/dL (7-18); CALCIUM 9.3 mg/dL (8.5-10.1); CREATININE 0.3 mg/dL (0.55-1.3); MAGNESIUM 1.9 mg/dL (1.8-2.4); PHOSPHOROUS 3.6 mg/dL (2.5-4.9); POTASSIUM 4.1 mmol/L (3.5-5.1)
[2018-12-21 08:54] LABS: HEMATOCRIT 31.1 % (32.4-45.2); HEMOGLOBIN 9.4 GM/dL (10.7-15.3); MCHC 30.3 g/dl (32.0-36.0); MEAN CELL VOLUME 69.4 fl (80-96); PLATELET COUNT 229 K/MM3 (134-434); RBC 4.48 M/mm3 (3.60-5.2); RDW 20.6 % (11.6-15.6); WHITE BLOOD COUNT 10.8 K/mm3 (4.0-10.0)
--- NOTE | 2018-12-21 09:10 | PN ---
Physical Exam: SUBJECTIVE: Patient seen and examined at bedside. No complaints or overnight events. Reports much improved breathing. OBJECTIVE: Vital Signs Period Temp Pulse Resp BP Sys/Laura Pulse Ox Last 24 Hr 97.9 F-98.5 F 96-105 18-20 115-126/53-82 97-99 GENERAL: NAD HEAD: Normal with no signs of trauma. EYES: EOMI Sclera Clear ENT: MMM NECK: Trachea midline, full range of motion, supple. LUNGS: rhoncorous breathing diffusely HEART: RRR S1S2 ABDOMEN: Soft, NDNT EXTREMITIES: No CCE appreciated NEUROLOGICAL: Cranial nerves II through XII grossly intact. Normal speech.. PSYCH: Normal mood, normal affect. SKIN: Warm, dry, normal turgor, no rashes or lesions noted Laboratory Results - last 24 hr 12/20/18 12/20/18 12/20/18 06:45 06:45 12:07 Neutrophils % (Manual) 96.0 H Band Neutrophils % 0.0 Lymphocytes % (Manual) 3.0 L Monocytes % (Manual) 0 L Eosinophils % (Manual) 1.0 Basophils % (Manual) 0.0 Myelocytes % (Man) 0 Promyelocytes % (Man) 0 Blast Cells % (Manual) 0 Metamyelocytes 0 Hypochromia 1+ Platelet Estimate Normal Polychromasia 1+ Poikilocytosis 2+ Anisocytosis 2+ Microcytosis 2+ Macrocytosis 0 Ovalocytes 2+ Sodium Potassium Chloride Carbon Dioxide Anion Gap BUN Creatinine Est GFR (CKD-EPI)AfAm Est GFR (CKD-EPI)NonAf POC Glucometer 335 Random Glucose Calcium Phosphorus Magnesium Iron 20 L TIBC 266 Iron Saturation 8 L Transferrin 217 12/20/18 12/20/18 12/21/18 17:21 22:05 05:25 Neutrophils % (Manual) Band Neutrophils % Lymphocytes % (Manual) Monocytes % (Manual) Eosinophils % (Manual) Basophils % (Manual) Myelocytes % (Man) Promyelocytes % (Man) Blast Cells % (Manual) Metamyelocytes Hypochromia Platelet Estimate Polychromasia Poikilocytosis Anisocytosis Microcytosis Macrocytosis Ovalocytes Sodium Potassium Chloride Carbon Dioxide Anion Gap BUN Creatinine Est GFR (CKD-EPI)AfAm Est GFR (CKD-EPI)NonAf POC Glucometer 314 271 166 Random Glucose Calcium Phosphorus Magnesium Iron TIBC Iron Saturation Transferrin 12/21/18 07:18 Neutrophils % (Manual) Band Neutrophils % Lymphocytes % (Manual) Monocytes % (Manual) Eosinophils % (Manual) Basophils % (Manual) Myelocytes % (Man) Promyelocytes % (Man) Blast Cells % (Manual) Metamyelocytes Hypochromia Platelet Estimate Polychromasia Poikilocytosis Anisocytosis Microcytosis Macrocytosis Ovalocytes Sodium 141 Potassium 4.1 Chloride 100 Carbon Dioxide 37 H Anion Gap 3 L BUN 11.2 Creatinine 0.3 L Est GFR (CKD-EPI)AfAm 141.23 Est GFR (CKD-EPI)NonAf 121.85 POC Glucometer Random Glucose 100 Calcium 9.3 Phosphorus 3.6 Magnesium 1.9 Iron TIBC Iron Saturation Transferrin Active Medications Generic Name Dose Route Start Last Admin Trade Name Freq PRN Reason Stop Dose Admin Albuterol Sulfate 1 amp 12/20/18 02:45 Ventolin 0.083% Nebulizer Soln - NEB Q4H PRN SHORT OF BREATH/WHEEZING Albuterol Sulfate 1 amp 12/20/18 08:00 12/21/18 07:39 Ventolin 0.083% Nebulizer Soln - NEB 1 amp RQID DEAN Administration Aspirin 81 mg 12/20/18 10:00 12/20/18 10:42 Asa - PO 81 mg DAILY DEAN Administration Budesonide/Formoterol Fumarate 2 puff 12/20/18 22:00 12/20/18 22:08 Symbicort 160/4.5mcg - IH 2 puff BID DEAN Administration Calcium Carbonate/Cholecalciferol 1 tab 12/20/18 10:00 12/20/18 10:42 Os-Sj 500+D - PO 1 tab DAILY DEAN Administration Enoxaparin Sodium 40 mg 12/20/18 10:00 12/20/18 10:42 Lovenox - SQ 40 mg DAILY DEAN Administration Gabapentin 300 mg 12/20/18 06:00 12/21/18 05:20 Neurontin - PO 300 mg TID DEAN Administration Guaifenesin 5 ml 12/20/18 03:57 Robitussin Dm - PO Q6H PRN COUGH Piperacillin Sod/Tazobactam 50 mls @ 100 mls/hr 12/20/18 18:00 12/21/18 02:20 Sod 3.375 gm/ Dextrose IVPB 100 mls/hr Q8H-IV DEAN Administration Protocol Insulin Aspart 1 vial 12/20/18 07:00 12/21/18 06:12 Novolog Vial Sliding Scale - SQ 2 units ACHS DEAN Administration Protocol Insulin Detemir 26 units 12/20/18 22:00 12/20/18 22:06 Levemir Vial SQ 26 units HS DEAN Administration Magnesium Hydroxide 15 ml 12/20/18 03:57 Milk Of Magnesia - PO DAILY PRN INDIGESTION Methadone HCl 30 mg 12/21/18 06:00 Dolophine - PO DAILY@0600 DEAN Methylprednisolone Sodium Succinate 60 mg 12/20/18 22:00 12/20/18 22:03 Solu-Medrol - IVPUSH 60 mg BID DEAN Administration Naphazoline HCl/Pheniramine Maleate 1 drop 12/20/18 06:00 12/21/18 06:11 Visine-A - OU Not Given TID [facility] Nicotine 14 mg 12/20/18 10:00 12/20/18 10:42 Nicoderm Patch - TD 14 mg DAILY DEAN Administration Nitroglycerin 0.4 mg 12/20/18 03:57 Nitrostat - SL PRN PRN FOR CHEST PAIN Pantoprazole Sodium 20 mg 12/20/18 10:00 12/20/18 10:42 Protonix - PO 20 mg DAILY DEAN Administration ASSESSMENT/PLAN: Pt is a 63 yo F with PMHx of HTN, HLD, DM, CAD, COPD on home oxygen 2-3 L, Right lung CA s/p radiation a year ago, active smoker, presenting to the ED from [facility] for worsening Shortness of breath at rest and dry cough for 2 days. #SOB 2/2 COPD Exacerbation -Pt recently intubated 11/2018 at [facility]. CT scan performed there revealed infiltrates in RML and RLL. - Received 125 solumed in ED - 60mg BID Solumedrol, decreasing to 40 daily tomorrow - Duonebs, ventolin IH, BNP---> 179 -On Home O2 2-3 L -Bipap at night -Will place on ABx as possible Pneumonia though no WBC, or fever appreciated. I.D on board. Dasha. #DM- -Levemir 26U HS -ISS #Neuropathy -Cont gabapentin #HTN: -HTN medications stopped while at [facility]. Will monitor BP during stay and assess need for reinstitution of meds. #HLD: No statins documented #CAD: Unclear hx, appears she got cath without stents in past. Plavix held by Dominick tellez, cont ASA #Right lung CA - s/p radiation a year ago -Heme/Onc and Radiation onc input appreciated -3cm RLL density on CT, needs f/u #ppx: Lovenox sq Protonix #FEN Diabetic Diet Monitor Electrolytes No Standing Fluids Visit type - Emergency Visit Emergency Visit: No - New Patient This patient is new to me today: Yes Date on this admission: 12/21/18 - Critical Care Critical Care patient: No
[2018-12-21] MEDS ORDERED: PT OWN MED DRAWER 7, Y5N ONE (09:18)
[2018-12-21] MEDS ORDERED: DEXTROSE 5%-WATER - 50 ML IVPB ONE ×2 (09:18→17:39)
[2018-12-21] MEDS ORDERED: PIPERACILLIN/TAZOBACTAM 3.375 GM VIAL IVPB ONE ×2 (09:18→17:39)
[2018-12-21] MEDS: METHADONE HCL 10 MG TABLET PO SCH (09:27)
[2018-12-21] MEDS: ASPIRIN 81 MG CHEWABLE TABLETS PO SCH (09:28)
[2018-12-21] MEDS: PANTOPRAZOLE 20 MG TABLET (FP) PO SCH (09:28)
[2018-12-21] MEDS: CALCIUM 500MG/VIT-D 200 UNITS COMBO TABLET (FP) PO SCH (09:28)
[2018-12-21] MEDS: BUDESONIDE/FORMETEROL FUMARATE 160/4.5 mcg INHALER IH SCH ×2 (09:30→21:35)
[2018-12-21] MEDS: methylPREDNISolone NA SUCC 40 MG/1 ML VIAL IVPUSH SCH ×2 (09:31→21:51)
[2018-12-21] MEDS: ENOXAPARIN NA (PORCINE) 40 MG/0.4 ML DISP.SYRIN SQ SCH (09:32)
[2018-12-21] MEDS: NICOTINE 14 MG/24 HOURS TOPICAL PATCH TD SCH (09:33)
[2018-12-21] MEDS ORDERED: INSULIN (NOVOLOG) ASPART 100 UNITS/ML 10ML VIAL ONE (11:36)
--- NOTE | 2018-12-21 13:47 | PN ---
Progress Note (short form) - Note Progress Note: feels improved still with nonproductive cough Vital Signs Period Temp Pulse Resp BP Sys/Laura Pulse Ox Last 24 Hr 97.9 F-98.5 F 96-105 20-20 115-124/53-82 97-99 cor-rrr lungs bilateral rhonchi abd soft,nt ext no edema CBC, BMP 12/21/18 07:18 12/21/18 07:18 Microbiology 12/19/18 21:50 Blood - Peripheral Venous Blood Culture - Preliminary Pending Organism 12/19/18 21:50 Blood - Peripheral Venous Blood Culture - Preliminary NO GROWTH OBTAINED AFTER 24 HOURS, INCUBATION TO CONTINUE FOR 4 DAYS. a/p copd exacerbation cannot r/o pneumonia history of lung cancer continue zosyn, improved now with positive blood culture! repeat blood culture sent add vancomycin
[2018-12-21] MEDS ORDERED: VANCOMYCIN 1 GRAM (PRE-DOCKED) 1,000 MG/250 ML BAG IVPB SCH (14:00)
[2018-12-21] MEDS ORDERED: INSULIN (LEVEMIR) 100 UNITS/ML UNITS SQ SCH (14:14)
--- NOTE | 2018-12-21 14:15 | PN ---
Teaching Attending Note Name of Resident: Dieudonne Raya ATTENDING PHYSICIAN STATEMENT I saw and evaluated the patient. I reviewed the resident's note and discussed the case with the resident. I agree with the resident's findings and plan as documented. SUBJECTIVE: No fever or chills. No GONZALEZ . feels better . dry cough . repoerts being on methadone for drug use in past . dose decreased from 70 ot 30 OBJECTIVE: NAD. MMM CV: RRR. no MRG , No JVD Lungs: rales b/l bases. good air entry , no wheezes Abd: soft, NT, ND, NL BS Ext : No edema . 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 She was found to have acute COPD exacerbation. 1- Acute hypoxic resp failure due to acute COPD exacerbation: - cont steroids, change to daily in am - cont Nebs. - cont symbicort - Cont zosyn, for possible PNA. - Blood cx with G+ cocci in clusters in 1 set. repeat blood cx - vanco started 2- H/o Lung ca: s/p radiation. - Abd/P CT and Bone scan pending - out pt PET 3- DM: increase levemir to 30 and cont SSI 4- H/o CAD: - cont asa 5- H/o drug use. cont methadone. dose confirmed DVT PX : Lovenox
[2018-12-21] MEDS ORDERED: LORazepam 0.5 MG TABLET PO ONE (16:59)
[2018-12-21] MEDS ORDERED: ACETAMINOPHEN 325 MG TABLET (FP) ONE (23:02)
[2018-12-21] MEDS ORDERED: ACETAMINOPHEN 325 MG TABLET (FP) PO ONE (23:08)
[2018-12-22] MEDS ORDERED: PIPERACILLIN/TAZOBACTAM 3.375 GM VIAL IVPB ONE ×4 (00:09→23:47)
[2018-12-22] MEDS ORDERED: DEXTROSE 5%-WATER - 50 ML IVPB ONE ×4 (00:09→23:48)
[2018-12-22] MEDS: PIPERACILLIN/TAZOB 3.375 GM 3.375 GM in DEXTROSE 5%-WATER - 50 ML IVPB SCH ×3 (02:05→17:38)
[2018-12-22] MEDS: METHADONE HCL 10 MG TABLET PO SCH (05:57)
[2018-12-22] MEDS: GABAPENTIN 300 MG CAPSULE (FP) PO SCH ×3 (05:58→21:02)
[2018-12-22] MEDS: NAPHAZOLINE/PHENIRAMINE OPHTHALMIC 15 ML BOTTLE OU SCH ×3 (05:58→21:16)
[2018-12-22] MEDS: INSULIN SLIDING SCALE (NOVOLOG) 1 VIAL SQ SCH ×4 (06:01→21:05)
[2018-12-22] MEDS: ALBUTEROL SO4 0.083% IH SOL 2.5 MG/3 ML VIAL.NEB. NEB SCH ×4 (07:30→19:50)
[2018-12-22 08:10] LABS: BASO % 0.1 % (0-2.0); HEMATOCRIT 31.9 % (32.4-45.2); HEMOGLOBIN 9.5 GM/dL (10.7-15.3); LYMPH % 9.5 % (8-40); MCH 20.8 pg (25.7-33.7); MCHC 29.7 g/dl (32.0-36.0); MEAN CELL VOLUME 69.9 fl (80-96); MEAN PLT VOLUME 8.2 fl (7.5-11.1); MONO % 6.8 % (3.8-10.2); NEUT % 83.6 % (42.8-82.8); RBC 4.57 M/mm3 (3.60-5.2); RDW 20.8 % (11.6-15.6); WHITE BLOOD COUNT 7.8 K/mm3 (4.0-10.0)
[2018-12-22 08:37] LABS: BLOOD UREA NITROGEN 10.3 mg/dL (7-18); CREATININE 0.3 mg/dL (0.55-1.3); MAGNESIUM 2.3 mg/dL (1.8-2.4); POTASSIUM 3.9 mmol/L (3.5-5.1)
[2018-12-22 08:59] LABS: PLATELET COUNT 211 K/MM3 (134-434)
[2018-12-22] MEDS: CALCIUM 500MG/VIT-D 200 UNITS COMBO TABLET (FP) PO SCH (10:39)
[2018-12-22] MEDS: PANTOPRAZOLE 20 MG TABLET (FP) PO SCH (10:39)
[2018-12-22] MEDS: ENOXAPARIN NA (PORCINE) 40 MG/0.4 ML DISP.SYRIN SQ SCH (10:39)
[2018-12-22] MEDS: ASPIRIN 81 MG CHEWABLE TABLETS PO SCH (10:39)
[2018-12-22] MEDS: NICOTINE 14 MG/24 HOURS TOPICAL PATCH TD SCH (10:40)
[2018-12-22] MEDS: BUDESONIDE/FORMETEROL FUMARATE 160/4.5 mcg INHALER IH SCH ×2 (10:40→21:16)
[2018-12-22] MEDS: methylPREDNISolone NA SUCC 40 MG/1 ML VIAL IVPUSH SCH (11:02)
[2018-12-22] MEDS ORDERED: INSULIN (LEVEMIR) 100 UNITS/ML UNITS SQ SCH (12:57)
--- NOTE | 2018-12-22 12:57 | PN ---
Progress Note (short form) - Note Progress Note: Subjective: no fever or chills. breathing is better . Caro no abd pain. Objective: Vital Signs: Last Vital Signs Temp Pulse Resp BP Pulse Ox 98.3 F 96 H 20 133/65 97 12/22/18 06:00 12/22/18 06:00 12/22/18 06:00 12/22/18 06:00 12/22/18 07:30 Laboratory Results - last 24 hr 12/21/18 12/21/18 12/22/18 16:37 21:38 05:55 WBC RBC Hgb Hct MCV MCH MCHC RDW Plt Count MPV Absolute Neuts (auto) Neutrophils % Lymphocytes % Monocytes % Eosinophils % Basophils % Nucleated RBC % Sodium Potassium Chloride Carbon Dioxide Anion Gap BUN Creatinine Est GFR (CKD-EPI)AfAm Est GFR (CKD-EPI)NonAf POC Glucometer 272 346 239 Random Glucose Calcium Phosphorus Magnesium 12/22/18 12/22/18 12/22/18 07:32 07:37 11:58 WBC 7.8 RBC 4.57 Hgb 9.5 L Hct 31.9 L MCV 69.9 L MCH 20.8 L MCHC 29.7 L RDW 20.8 H Plt Count 211 MPV 8.2 Absolute Neuts (auto) 6.5 Neutrophils % 83.6 H Lymphocytes % 9.5 D Monocytes % 6.8 D Eosinophils % 0.0 Basophils % 0.1 Nucleated RBC % 0 Sodium 138 Potassium 3.9 Chloride 98 Carbon Dioxide 38 H Anion Gap 2 L BUN 10.3 Creatinine 0.3 L Est GFR (CKD-EPI)AfAm 141.23 Est GFR (CKD-EPI)NonAf 121.85 POC Glucometer 327 Random Glucose 127 H Calcium 9.0 Phosphorus 3.0 Magnesium 2.3 Physical Exam: NAD. MMM CV: RRR. no MRG , No JVD Lungs: rales b/l bases improved. good air entry , no wheezes. Abd: soft, NT, ND, NL BS Ext : No edema . ASSESSMENT AND PLAN: Unfortunate 63 y/o lady with H/o SCC of RLL s/p Rtx with local recurrence and no Mets,COPD on 4 L o2, recent hospitalization to [facility] fro COPD exacerbation requiring intubation ( dc 12/11/18), HTN, HLP, CAD, who presented with SOB and Hypoxia . She was found to have acute COPD exacerbation. 1- Acute hypoxic resp failure due to acute COPD exacerbation: - cont steroids. day 1 on daily dosing - cont Nebs. - cont symbicort - Cont zosyn, for possible PNA. - d/w ID , no need for vanc as blood cx is likely contaminant. - follwo repeat blood cx 2- H/o Lung ca: s/p radiation. - Abd/P CT reviewed. Get MRCP - Bone scan pending - out pt PET 3- DM: increase levemir to 35 and cont SSI 4- H/o CAD: - cont asa 5- H/o drug use. cont methadone. DVT PX : Lovenox Visit type - Emergency Visit Emergency Visit: Yes ED Registration Date: 12/19/18 Care time: The patient presented to the Emergency Department on the above date and was hospitalized for further evaluation of their emergent condition. - New Patient This patient is new to me today: No - Critical Care Critical Care patient: No
--- NOTE | 2018-12-22 12:59 | PN ---
Progress Note (short form) - Note Progress Note: feels improved still with nonproductive cough wants to go home Vital Signs Period Temp Pulse Resp BP Sys/Laura Pulse Ox Last 24 Hr 98.3 F-98.7 F 96-110 20-20 126-144/65-81 97-98 cor-rrr lungs decreased bs at bases abd soft,nt ext no edema CBC, BMP 12/22/18 07:37 12/22/18 07:32 Microbiology 12/19/18 21:50 Blood - Peripheral Venous Blood Culture - Preliminary Staphylococcus Coagulase Neg 12/19/18 21:50 Blood - Peripheral Venous Blood Culture - Preliminary NO GROWTH OBTAINED AFTER 48 HOURS, INCUBATION TO CONTINUE FOR 3 DAYS. 12/20/18 15:36 Urine For Antigen Detection Legionella Antigen - Final 12/20/18 15:36 Urine For Antigen Detection Streptococcus pneumoniae Antigen (M - Final a/p copd exacerbation cannot r/o pneumonia history of lung cancer continue zosyn, improved now with positive blood culture-SCN skin contaminant- d/c vanco repeat blood culture sent
[2018-12-22] MEDS ORDERED: INSULIN (NOVOLOG) ASPART 100 UNITS/ML 10ML VIAL ONE (20:49)
[2018-12-23] MEDS: PIPERACILLIN/TAZOB 3.375 GM 3.375 GM in DEXTROSE 5%-WATER - 50 ML IVPB SCH ×3 (01:22→18:14)
[2018-12-23] MEDS: GABAPENTIN 300 MG CAPSULE (FP) PO SCH ×2 (06:04→14:04)
[2018-12-23] MEDS: INSULIN SLIDING SCALE (NOVOLOG) 1 VIAL SQ SCH ×3 (06:05→16:54)
[2018-12-23] MEDS: NAPHAZOLINE/PHENIRAMINE OPHTHALMIC 15 ML BOTTLE OU SCH ×2 (06:05→14:05)
[2018-12-23] MEDS: METHADONE HCL 10 MG TABLET PO SCH (06:09)
[2018-12-23] MEDS: ALBUTEROL SO4 0.083% IH SOL 2.5 MG/3 ML VIAL.NEB. NEB SCH ×3 (07:46→15:11)
[2018-12-23] MEDS ORDERED: PIPERACILLIN/TAZOBACTAM 3.375 GM VIAL IVPB ONE (09:58)
[2018-12-23] MEDS ORDERED: DEXTROSE 5%-WATER - 50 ML IVPB ONE (09:58)
[2018-12-23] MEDS: ENOXAPARIN NA (PORCINE) 40 MG/0.4 ML DISP.SYRIN SQ SCH (10:03)
[2018-12-23] MEDS: PANTOPRAZOLE 20 MG TABLET (FP) PO SCH (10:03)
[2018-12-23] MEDS: CALCIUM 500MG/VIT-D 200 UNITS COMBO TABLET (FP) PO SCH (10:03)
[2018-12-23] MEDS: ASPIRIN 81 MG CHEWABLE TABLETS PO SCH (10:03)
[2018-12-23] MEDS: methylPREDNISolone NA SUCC 40 MG/1 ML VIAL IVPUSH SCH (10:04)
[2018-12-23] MEDS: NICOTINE 14 MG/24 HOURS TOPICAL PATCH TD SCH (10:04)
[2018-12-23] MEDS: BUDESONIDE/FORMETEROL FUMARATE 160/4.5 mcg INHALER IH SCH (10:04)
--- NOTE | 2018-12-23 11:45 | PN ---
Teaching Attending Note Name of Resident: Dieudonne Raya ATTENDING PHYSICIAN STATEMENT I saw and evaluated the patient. I reviewed the resident's note and discussed the case with the resident. I agree with the resident's findings and plan as documented. SUBJECTIVE: No fever or chills. she feels much better. still with dry cough. no GONZALEZ , nO CP , walking around OBJECTIVE: NAD. MMM CV: RRR. no MRG , No JVD Lungs: bibasilar crackles. good air entry, no wheezes. Abd: soft, NT, ND, NL BS Ext : No edema . 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 She was found to have acute COPD exacerbation. 1- Acute hypoxic resp failure due to acute COPD exacerbation: - cont steroids. will taper prednisone - cont Nebs. - cont symbicort - Will ask ID if zosyn could be changed to PO abx - follow 48 hr repeat blood cx this afternoon 2- H/o Lung ca: s/p radiation. - MRCP for the dilation in CBD. Not urgent ( No LFTS abn and no abd pain or tenderness ) , and will refer to GI for that - Bone scan can be done as out pt - out pt PET 3- DM: will have her use 30 units of levemir until she finishes her prednisone taper , then can go back to her home dose 26 units 4- H/o CAD: - cont asa 5- H/o drug use. cont methadone. dispo : if she can be switched to PO Abx, then can dc . 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
[2018-12-23] MEDS ORDERED: INSULIN (LEVEMIR) 100 UNITS/ML UNITS SQ SCH (11:53)
--- NOTE | 2018-12-23 12:10 | PN ---
Progress Note (short form) - Note Progress Note: feels improved no complaints just going to MRI Vital Signs Period Temp Pulse Resp BP Sys/Laura Pulse Ox Last 24 Hr 98.1 F-98.7 F 79-99 18-22 116-140/60-80 97 cor-rrr lungs clear decreased bs at bases abd soft,nt ext no edema CBC, BMP 12/22/18 07:37 12/22/18 07:32 Microbiology 12/21/18 16:30 Sputum - Expectorated Sputum Culture - Preliminary Pending Organism 12/19/18 21:50 Blood - Peripheral Venous Blood Culture - Final Staphylococcus Epidermidis 12/19/18 21:50 Blood - Peripheral Venous Blood Culture - Preliminary NO GROWTH OBTAINED AFTER 72 HOURS, INCUBATION TO CONTINUE FOR 2 DAYS. 12/21/18 13:10 Blood - Peripheral Venous Blood Culture - Preliminary NO GROWTH OBTAINED AFTER 24 HOURS, INCUBATION TO CONTINUE FOR 4 DAYS. 12/21/18 13:00 Blood - Peripheral Venous Blood Culture - Preliminary NO GROWTH OBTAINED AFTER 24 HOURS, INCUBATION TO CONTINUE FOR 4 DAYS. 12/20/18 15:36 Urine For Antigen Detection Legionella Antigen - Final 12/20/18 15:36 Urine For Antigen Detection Streptococcus pneumoniae Antigen (M - Final a/p copd exacerbation cannot r/o pneumonia history of lung cancer now with positive blood culture-SCN skin contaminant- d/c vanco repeat blood culture sent and negative day #4 zosyn, can switch to po augmentin to finish 7 days for MRCP given abnl ct scan findings
--- NOTE | 2018-12-23 15:07 | DS ---
Physical Exam: SUBJECTIVE: Patient seen and examined at bedside. Comfortable, improved breathing, no overnight events or complaints. OBJECTIVE: Vital Signs Period Temp Pulse Resp BP Sys/Laura Pulse Ox Last 24 Hr 98.1 F-98.7 F 79-99 18- 116-140/60-80 97 PHYSICAL EXAM GENERAL: NAD HEAD: Normal with no signs of trauma. EYES: EOMI Sclera Clear ENT: MMM NECK: Trachea midline, full range of motion, supple. LUNGS: faint rhoncorous breathing diffusely HEART: RRR S1S2 ABDOMEN: Soft, NDNT EXTREMITIES: No CCE appreciated NEUROLOGICAL: Cranial nerves II through XII grossly intact. Normal speech.. PSYCH: Normal mood, normal affect. SKIN: Warm, dry, normal turgor, no rashes or lesions noted LABS Laboratory Results - last 24 hr 12/22/18 12/22/18 12/23/18 16:50 21:03 06:04 POC Glucometer 381 369 88 HOSPITAL COURSE: MICROBIOLOGY BCx 12/19: Staph epidermidis (deemed contaminant by ID) U Legionella Ag 12/20: negative BCx 12/21: NG Sputum Cx 12/21: organism pending at time of dc IMAGING CXR 12/19: "A single AP view of the chest has been submitted. Since 11/27/2017 the mediastinum is unchanged. There is a normal heart, sclerotic knob and prominent petr. There are some coarse lung changes especially at the left base and in the right lung. Exact nature of this is unclear. Angles are sharp. The soft tissues are intact." CT chest w/o 12/20: "Moderate COPD/centrilobular emphysema changes mainly involving the upper lobes. Bilateral patchy airspace opacities with tiny cystic changes versus minimal bronchiectasis suggestive of infiltrates. Approximately 3 cm masslike density in the right lower lobe, medially along the inferior margin of the right hilum, axial image 48 suggestive of a focal area of consolidation versus a mass. Correlation with PET CT scan or follow-up CT scan of the chest in 2 weeks is needed for further evaluation. Pulmonary consult is suggested. Borderline paratracheal lymph nodes. Cannot rule out borderline splenomegaly" Metastatic bone survey 12/20: "No sign of blastic or lytic changes." Contrast CT a/p 12/21: "1. Cholelithiasis with dilatation of the biliary tree without obvious obstruction. MRCP follow-up recommended. 2. No evidence of metastatic disease or acute pathology within the abdomen or pelvis." MRCP 12/23: "Gallbladder sludge and/or layering stones with no MRI evidence of cholecystitis. Marked CBD and CHD dilatation with moderate intrahepatic biliary ductal dilatation and moderate diffuse pancreatic ductal dilatation to the level of the ampulla with no definite obstructive lesion seen however study is limited by lack of contrast. The differential diagnoses include ampullary lesion , ampullary stricture and subtle/occult pancreatic head tumor. 5 mm cyst in the pancreatic uncinate process. Moderate colonic stool burden." Date of Admission:12/19/18 Patient is a 63 y/o F with PMHx of HTN, HLD, DM, CAD, COPD on home oxygen 2 L , RLL squamous cell Ca s/p SBRT x 2 (2014, 2017), active smoker, presenting to the ED from [facility] for worsening SOB at rest and dry cough for 2 days. Admitted for COPD exacerbation and suspected PNA. Medical oncology, radiation oncology, and ID were consulted. Imaging as per above was suspicious for recurrent lung cancer, and revealed unexplained biliary system dilatation. She was treated with steroids and bronchodilators and a course of ABx to be completed as outpt. She was discharged home with f/u referrals to primary care, medical oncology, radiation oncology, and gastroenterology. Date of Discharge: 12/23/18 Minutes to complete discharge: 40 Discharge Summary Reason For Visit: HOSPITAL ACQUIRED PNEUMONIA Current Active Problems COPD (chronic obstructive pulmonary disease) (Acute) Diabetes (Acute) Hospital-acquired pneumonia (Acute) Hypertension (Acute) Lung cancer (Acute) Requires oxygen therapy (Acute) Condition: Improved - Instructions Diet, Activity, Other Instructions: You were hospitalized for an exacerbation of COPD and possible pneumonia, which was treated with medication. Your imaging studies were unfortunately suspicious for a possible recurrence of your lung cancer. You will need outpatient followup with medical and radiation oncology to determine the next steps of evaluation and treatment. -Imaging of your abdomen showed dilation of the ducts around the liver. This will need to be followed up as an outpatient with gastroenterology. ( Dr. Mims). it is important to make sure there is no tumor causing obstruction . - You have additionally been given a referral for primary care in our clinic , if you don't have a PCP. Please keep appointments with all of these providers. Recommendations for your medical therapy upon discharge are below. If you experience any worsening shortness of breath, chest pain, swelling, coughing up blood, fever, chills, abdominal pain, or any other new or concerning symptom, please return to the Emergency Department. Medical recommendations Resume your home oxygen and home medications as directed, with the following exceptions: Complete antibiotic therapy by taking Augmentin twice per day for 3 days following discharge. A prescription has been sent to your pharmacy. You were started on a course of steroids in the hospital and require a long taper of oral steroids to safely discontinue this drug. Take 40mg prednisone days 1-3 after discharge. Take 30 mg prednisone days 4-6 Take 20mg prednisone days 7-9 Take 10mg prednisone days 9-12, then discontinue prednisone. A prescription has been sent to your pharmacy. During the 12 days you take prednisone, increase your home dose of insulin glargine to 30 units. Upon completion of prednisone, resume your ordinary dose of 26 units. You need bone scan as out patient Referrals: [facility] [place] [Provider Group] Girish Mims DO [Staff Physician] - Sanjeev Jay MD [Staff Physician] - Kulwinder Navarro MD [Staff Physician] - Disposition: VNS/HOME HEALTH CARE - Home Medications Comprehensive Discharge Medication List: Ambulatory Orders Albuterol Sulfate Inhaler - [Ventolin HFA Inhaler -] 1 - 2 inh PO QID 09/03/17 Aspirin 81 mg PO DAILY 09/03/17 Gabapentin 300 mg PO TID 09/03/17 Nitroglycerin 0.4 mg SL PRN PRN 09/03/17 Acetaminophen [Tylenol Extra Strength] 500 mg PO PRN 12/19/18 Calcium Carbonate/Vitamin D3 [Calcium 500-Vit D3 200 Tablet] 1 each PO DAILY Insulin Glargine,Hum.rec.anlog [Basaglar Kwikpen U-100] 26 unit SQ DAILY Nicotine [Nicotine Patch] 1 each TD DAILY 12/19/18 Omeprazole 20 mg PO DAILY 12/19/18 Insulin Lispro See Protocol SQ AC 12/20/18 Ipratropium/Albuterol Sulfate [Iprat-Albut 0.5-3(2.5) mg/3 ml] 3 ml IN Q6H 06/14 /19 Magnesium Hydroxide [Milk of Magnesia -] 15 ml PO DAILY PRN 12/20/18 Methadone [Dolophine -] 30 mg PO DAILY 12/20/18 Naphazoline HCl/Pheniramine [Allergy Eye Drops] 15 ml OP TID 12/20/18 Amox-Tr/K Cl [Augmentin - 875Mg Tablet] 1 tab PO BID #6 tablet 12/23/18 predniSONE [Deltasone -] See Taper PO ASDIR #30 tab 12/23/18 This patient is new to me today: No Emergency Visit: No Critical Care patient: No - Discharge Referral [facility]erred to [facility] No
[2018-12-23] MEDS ORDERED: INSULIN (NOVOLOG) ASPART 100 UNITS/ML 10ML VIAL ONE (16:51)
[2018-12-23 18:53] VITALS: BP 147/79; PULSE 98; TEMP 98.6
== END 2018-12-23 18:55 | disposition home health service (06) | DRG 140 ==
LOC: JER 20:00 → JERBED 23:18 → J8W 12-20 00:56
PROVIDERS: ADMIT Internal Medicine; ATTEND Internal Medicine
DX: J44.1 Chronic obstructive pulmonary disease with (acute) exacerbation (principal); J18.9 Pneumonia, unspecified organism; I10 Essential (primary) hypertension; E78.5 Hyperlipidemia, unspecified; I45.81 Long QT syndrome; E11.40 Type 2 diabetes mellitus with diabetic neuropathy, unspecified; E11.65 Type 2 diabetes mellitus with hyperglycemia; J96.01 Acute respiratory failure with hypoxia; I25.10 Atherosclerotic heart disease of native coronary artery without angina pectoris; D64.9 Anemia, unspecified; F11.20 Opioid dependence, uncomplicated; K82.8 Other specified diseases of gallbladder; F17.210 Nicotine dependence, cigarettes, uncomplicated; Z85.830 Personal history of malignant neoplasm of bone; Z85.118 Personal history of other malignant neoplasm of bronchus and lung; Z99.81 Dependence on supplemental oxygen; Z79.4 Long term (current) use of insulin
CPT/HCPCS: 36415; 71045-TC-FY; 71250-TC; 74177-TC; 74181-TC; 77074-TC-FY; 80048; 80053; 80307; 81003; 82728; 82962; 83540; 83550; 83735; 83880; 84100; 84466; 84484; 85025; 85027; 85610; 85730; 87040; 87070; 87186; 87205; 87804; 87807; 87899; 93005; 93010; 94010; 94640; 94660; 97116-GP; 97161-GP; 99282-25; J7030